=== PATIENT | male | born 1950 | race Caucasian/White ===

== ENCOUNTER 2017-09-07 09:59 | Day surgery (SDC) | payer MEDICARE ==
[~2017-09-07] VITALS: Ht 180.3 cm; Wt 127.8 kg
[~2017-09-07 09:59] MED LIST: ENOX60SY4 SC; LORA2TAB PO; LOSA100T6 PO; VENL150C PO; WARF-36 PO
[2017-09-07] MEDS ORDERED: LACTATED RINGERS 1,000 ML IV SCH (10:44)
[2017-09-07] MEDS ORDERED: LIDOCAINE-MPF 1%, 2ML ONE (10:47)
[2017-09-07] MEDS ORDERED: LIDOCAINE-MPF 1%, 2ML INFIL ONE (11:00)
[2017-09-07 11:18] LABS: INTERNATIONAL NORMALIZED RATIO 0.99 (0.93-1.1); PROTHROMBIN TIME 10.3 Seconds (9.6-11.5)
[2017-09-07] MEDS ORDERED: PROPOFOL 10 MG/ML, 20ML ONE (12:41)
[2017-09-07] MEDS ORDERED: ONDANSETRON ODT 8 MG PO PRN (13:30)
[2017-09-07] MEDS ORDERED: FENTANYL PF 100 MCG/2ML IV PRN (13:30)
[2017-09-07] MEDS ORDERED: LORazepam 2 MG/ML, 1ML IVPush PRN (13:30)
[2017-09-07] MEDS ORDERED: OXYcodone 5 MG/5 ML ORAL.SOL UDC PO PRN (13:30)
[2017-09-07] MEDS ORDERED: MIDAZOLAM 1 MG/ML, 2ML IV PRN (13:30)
[2017-09-07] MEDS ORDERED: MORPHINE SULFATE 4 MG/ML, 1ML IVPush PRN (13:30)
== END 2017-09-07 15:00 ==
LOC: OUT 09:59
DX: Z09 Encounter for follow-up examination after completed treatment for conditions other than malignant neoplasm (principal); D12.0 Benign neoplasm of cecum; D12.4 Benign neoplasm of descending colon; K57.30 Diverticulosis of large intestine without perforation or abscess without bleeding; Z86.010 Personal history of colon polyps; I10 Essential (primary) hypertension
CPT/HCPCS: 36415; 45385; 85610; 85730; 88305; J2704; J3490; J7120

== ENCOUNTER 2020-01-23 13:58 | Inpatient (IN) | payer MEDICARE, OTHER ==
[~2020-01-23] VITALS: Ht 180.3 cm; Wt 95.7 kg
[~2020-01-23 13:58] MED LIST changes: +LOSA100T14 PO; -LOSA100T6 PO
--- NOTE | 2020-01-23 14:04 | NUR ---
HAD A SYNCOPAL EVENT AND CHEST PAIN TODAY AND BIB [facility] IN A FLUTTER. PT REPORTS ELIQUIS USE BUT DENIES ANY INJURIES FROM FALL. PT TACHYPNIC ON ARRIVAL BUT DENIES ANY RESPIRATORY COMPLAINTS AT THIS TIME. PT SEEN AT [facility] YESTERDAY FOR TIA AND PT WITH HISTORY OF. UPON ARRIVAL TO [facility] ED, EKG DONE AT AND PT CHANGED INTO GOWN AND ATTACHED TO VS AND CARDIAC MONITORS. VSS AT THIS TIME. PT EDUCATED ON ER PROCESS AND VERBALIZES UNDERSTANDING. AWAITING ERP AT THIS TIME. PT HAS CALL LIGHT WITHIN REACH AND DENIES ANY OTHER NEEDS AT THIS TIME.
[2020-01-23 14:35] LABS: BASOPHILS # (AUTO) 0.04 x10^3/uL (0-0.1); BASOPHILS % (AUTO) 0 % (0-1); EOSINOPHILS # (AUTO) 0.17 x10^3/uL (0-0.4); EOSINOPHILS % (AUTO) 2 % (1-7); LYMPHOCYTES # (AUTO) 1.54 x10^3/uL (1-3.4); LYMPHOCYTES % (AUTO) 16 % (22-44); MD NO; MEAN CORPUSCULAR HEMOGLOBIN 29.7 pg (27.5-34.5); MEAN CORPUSCULAR HGB CONC 33.8 g/dL (33.2-36.2); MEAN PLATELET VOLUME 10.9 fL (7.4-10.4); MONOCYTES # (AUTO) 0.66 x10^3/uL (0.2-0.8); MONOCYTES % (AUTO) 7 % (2-9); NEUTROPHILS % (AUTO) 75 % (42-75); PLATELET COUNT 126 x10^3/uL (130-400); RED CELL DISTRIBUTION WIDTH 14.3 % (9.4-14.8)
[2020-01-23 14:41] LABS: INTERNATIONAL NORMALIZED RATIO 1.05 (0.93-1.1); PROTHROMBIN TIME 10.8 Seconds (9.6-11.5)
[2020-01-23 14:42] LABS: ALANINE AMINOTRANSFERASE 26 U/L (12-78); ALBUMIN 3.3 g/dL (3.4-5.0); ANION GAP 5 mmol/L (5-15); CALCIUM 8.6 mg/dL (8.5-10.1); CHLORIDE 108 mmol/L (98-107); CREATININE 1.38 mg/dL (0.7-1.3)
[2020-01-23 14:46] LABS: ALKALINE PHOSPHATASE 70 U/L (45-117); BILIRUBIN,TOTAL 0.8 mg/dL (0.2-1.0); TOTAL PROTEIN 6.9 g/dL (6.4-8.2); TROPONIN I < 0.015 ng/mL (0.000-0.045)
[2020-01-23] MEDS ORDERED: SODIUM CHLORIDE FLUSH 10ML SYR IVF ONE (15:00)
--- NOTE | 2020-01-23 15:17 | NUR ---
PT AMBULATES TO RESTROOM WITH STEADY GAIT AT THIS TIME.
--- NOTE | 2020-01-23 16:43 | NUR ---
THROUGHPUT RN: PT W/ LONG TERM PLUS INSURANCE. CALLED AND SPOKE W/ ADITYA AT [facility] WHO DECLINED TRANSFER. CALLED AND SPOKE W/ MUKESH AT [facility] WHO DECLINED TRANSFER. PSN FAXED TO [phone]. CONFIRMATION RECEIVED.
[2020-01-23] MEDS ORDERED: APIX5TAB PO (17:39)
--- NOTE | 2020-01-23 17:51 | NUR ---
PT TRANSPORTED FROM ED TO FLOOR AT THIS TIME. REPORT OF PT TO FLOOR RNS LORENZO AND VIRGIL. PT EDUCATED ON FLOOR ASSIGNMENT AND VERBALIZES UNDERSTANDING. ALL QUESTIONS ANSWERED PRIOR TO TRANSFER OF PT.
[2020-01-23 18:06] VITALS: BP 125/65
[2020-01-23 18:11] VITALS: BP 125/65
[2020-01-23] MEDS ORDERED: ZOLP10TA PO (18:42)
[2020-01-23 19:01] VITALS: BP 150/79
[2020-01-23] MEDS ORDERED: ACETAMINOPHEN 325 MG TABLET PO PRN (20:00)
[2020-01-23] MEDS ORDERED: POLYETHYLENE GLYCOL 17 GM PACKET PO PRN (20:00)
[2020-01-23] MEDS ORDERED: DOCUSATE 100 MG CAPSULE PO PRN (20:00)
[2020-01-23] MEDS ORDERED: PHARMACY MAY ADJ FOR RENAL FX MC PRN (20:00)
[2020-01-23] MEDS ORDERED: BISACODYL 10 MG SUPP PR PRN (20:00)
[2020-01-23] MEDS: VENLAFAXINE 75 MG CAP ER PO SCH (20:56)
[2020-01-23] MEDS: APIXABAN 5 MG TABLET PO SCH (20:56)
[2020-01-23] MEDS: ZOLPIDEM 10MG TABLET PO SCH (20:56)
[2020-01-23] MEDS: LOSARTAN 100 MG TAB PO SCH (20:56)
[2020-01-23 20:58] LABS: TROPONIN I < 0.015 ng/mL (0.000-0.045)
[2020-01-23] MEDS: METOPROLOL TARTRATE 25 MG TAB PO SCH (21:01)
[2020-01-23 21:32] LABS: AMPHETAMINE SCREEN, URINE Negative (Negative); BARBITURATE SCREEN, URINE Negative (Negative); BENZODIAZEPINE SCREEN, URINE Negative (Negative); CANNABINOID SCREEN, URINE Negative (Negative); COCAINE SCREEN, URINE Negative (Negative); METHADONE SCREEN, URINE Negative (Negative); OPIATE SCREEN, URINE Negative (Negative)
[2020-01-24 01:58] VITALS: BP 161/85
[2020-01-24 02:14] LABS: BASOPHILS # (AUTO) 0.04 x10^3/uL (0-0.1); BASOPHILS % (AUTO) 0 % (0-1); EOSINOPHILS # (AUTO) 0.26 x10^3/uL (0-0.4); EOSINOPHILS % (AUTO) 3 % (1-7); LYMPHOCYTES # (AUTO) 2.55 x10^3/uL (1-3.4); LYMPHOCYTES % (AUTO) 26 % (22-44); MD NO; MEAN CORPUSCULAR HEMOGLOBIN 29.8 pg (27.5-34.5); MEAN CORPUSCULAR HGB CONC 33.8 g/dL (33.2-36.2); MONOCYTES # (AUTO) 0.65 x10^3/uL (0.2-0.8); MONOCYTES % (AUTO) 7 % (2-9); NEUTROPHILS # (AUTO) 6.28 x10^3/uL (1.8-6.8); NEUTROPHILS % (AUTO) 64 % (42-75); PLATELET COUNT 108 x10^3/uL (130-400); RED BLOOD COUNT 5.24 x10^6/uL (4.38-5.82)
[2020-01-24 02:25] LABS: ALANINE AMINOTRANSFERASE 22 U/L (12-78); ANION GAP 5 mmol/L (5-15); CALCIUM 8.6 mg/dL (8.5-10.1); CHLORIDE 110 mmol/L (98-107); CREATININE 1.36 mg/dL (0.7-1.3)
[2020-01-24 02:33] LABS: TROPONIN I < 0.015 ng/mL (0.000-0.045)
[2020-01-24 02:35] LABS: ALKALINE PHOSPHATASE 68 U/L (45-117); BILIRUBIN,TOTAL 0.6 mg/dL (0.2-1.0); TOTAL PROTEIN 6.3 g/dL (6.4-8.2)
[2020-01-24] MEDS: METOPROLOL TARTRATE 25 MG TAB PO SCH ×2 (06:05→17:59)
[2020-01-24 07:28] VITALS: BP 137/81
[2020-01-24] MEDS: VENLAFAXINE 75 MG CAP ER PO SCH ×2 (07:42→20:18)
[2020-01-24] MEDS: APIXABAN 5 MG TABLET PO SCH ×2 (07:42→20:18)
[2020-01-24] MEDS ORDERED: REGADENOSON 0.4 MG/5 ML SYRINGE ONE (09:55)
[2020-01-24 13:49] VITALS: BP 147/77
[2020-01-24 17:58] VITALS: BP 159/90
[2020-01-24 19:51] VITALS: BP 166/94
[2020-01-24] MEDS: LOSARTAN 100 MG TAB PO SCH (20:18)
[2020-01-24] MEDS: ZOLPIDEM 10MG TABLET PO SCH (20:18)
[2020-01-24] MEDS: SODIUM CHLORIDE 0.9% 1,000 ML IV SCH (20:18)
[2020-01-25 00:02] VITALS: BP 183/100
[2020-01-25 04:23] VITALS: BP 124/57
[2020-01-25 06:01] LABS: ANION GAP 6 mmol/L (5-15); CALCIUM 8.8 mg/dL (8.5-10.1); CHLORIDE 109 mmol/L (98-107); CREATININE 1.06 mg/dL (0.7-1.3)
[2020-01-25 06:05] LABS: BASOPHILS # (AUTO) 0.03 x10^3/uL (0-0.1); BASOPHILS % (AUTO) 0 % (0-1); EOSINOPHILS # (AUTO) 0.31 x10^3/uL (0-0.4); EOSINOPHILS % (AUTO) 3 % (1-7); LYMPHOCYTES # (AUTO) 1.69 x10^3/uL (1-3.4); LYMPHOCYTES % (AUTO) 17 % (22-44); MD NO; MEAN CORPUSCULAR HEMOGLOBIN 29.6 pg (27.5-34.5); MEAN CORPUSCULAR HGB CONC 33.6 g/dL (33.2-36.2); MEAN PLATELET VOLUME 11.2 fL (7.4-10.4); MONOCYTES # (AUTO) 0.63 x10^3/uL (0.2-0.8); MONOCYTES % (AUTO) 6 % (2-9); NEUTROPHILS # (AUTO) 7.21 x10^3/uL (1.8-6.8); NEUTROPHILS % (AUTO) 73 % (42-75); PLATELET COUNT 106 x10^3/uL (130-400); RED CELL DISTRIBUTION WIDTH 13.7 % (9.4-14.8)
[2020-01-25 06:27] VITALS: BP 145/83
[2020-01-25] MEDS: METOPROLOL TARTRATE 25 MG TAB PO SCH ×2 (06:28→18:00)
[2020-01-25] MEDS ORDERED: LACTULOSE 10 GM/15 ML UDC PO SCH (09:00)
[2020-01-25] MEDS: VENLAFAXINE 75 MG CAP ER PO SCH ×2 (09:43→20:13)
[2020-01-25] MEDS: APIXABAN 5 MG TABLET PO SCH ×2 (09:43→20:13)
[2020-01-25] MEDS: CYANOCOBALAMIN 1,000 MCG/ML, 1ML IM SCH (09:43)
[2020-01-25 09:56] VITALS: BP 154/79
[2020-01-25 14:50] VITALS: BP 143/89
[2020-01-25 19:11] VITALS: BP 162/94
[2020-01-25] MEDS: LOSARTAN 100 MG TAB PO SCH (20:13)
[2020-01-25] MEDS: ZOLPIDEM 10MG TABLET PO SCH (20:13)
[2020-01-25] MEDS: SODIUM CHLORIDE 0.9% 1,000 ML IV SCH (20:14)
[2020-01-25] MEDS: FLUTICASONE NASAL SPRAY 16GM NAS PRN (21:34)
[2020-01-26 00:24] VITALS: BP 159/96
[2020-01-26 05:12] LABS: BASOPHILS # (AUTO) 0.07 x10^3/uL (0-0.1); BASOPHILS % (AUTO) 1 % (0-1); EOSINOPHILS # (AUTO) 0.27 x10^3/uL (0-0.4); EOSINOPHILS % (AUTO) 3 % (1-7); LYMPHOCYTES # (AUTO) 1.97 x10^3/uL (1-3.4); LYMPHOCYTES % (AUTO) 20 % (22-44); MD NO; MEAN CORPUSCULAR HEMOGLOBIN 29.4 pg (27.5-34.5); MEAN CORPUSCULAR HGB CONC 33.1 g/dL (33.2-36.2); MEAN PLATELET VOLUME 10.8 fL (7.4-10.4); MONOCYTES % (AUTO) 6 % (2-9); NEUTROPHILS # (AUTO) 7.12 x10^3/uL (1.8-6.8); NEUTROPHILS % (AUTO) 71 % (42-75); PLATELET COUNT 111 x10^3/uL (130-400); RED BLOOD COUNT 5.26 x10^6/uL (4.38-5.82); RED CELL DISTRIBUTION WIDTH 14.1 % (9.4-14.8)
[2020-01-26 05:22] LABS: ALANINE AMINOTRANSFERASE 20 U/L (12-78); ALBUMIN 3.1 g/dL (3.4-5.0); ANION GAP 6 mmol/L (5-15); CALCIUM 8.7 mg/dL (8.5-10.1); CHLORIDE 107 mmol/L (98-107); CREATININE 1.03 mg/dL (0.7-1.3)
[2020-01-26 05:24] LABS: ALKALINE PHOSPHATASE 67 U/L (45-117); BILIRUBIN,TOTAL 0.6 mg/dL (0.2-1.0); TOTAL PROTEIN 6.6 g/dL (6.4-8.2)
[2020-01-26 07:25] VITALS: BP 157/92
[2020-01-26] MEDS: METOPROLOL TARTRATE 25 MG TAB PO SCH ×2 (10:57→18:20)
[2020-01-26] MEDS: VENLAFAXINE 75 MG CAP ER PO SCH ×2 (10:57→21:34)
[2020-01-26] MEDS: APIXABAN 5 MG TABLET PO SCH ×2 (10:57→21:34)
[2020-01-26] MEDS: CYANOCOBALAMIN 1,000 MCG/ML, 1ML IM SCH (10:58)
[2020-01-26 14:15] VITALS: BP 132/88
[2020-01-26 18:13] VITALS: BP 142/82
[2020-01-26 19:33] VITALS: BP 166/99
[2020-01-26] MEDS: ZOLPIDEM 10MG TABLET PO SCH (21:34)
[2020-01-26] MEDS: LOSARTAN 100 MG TAB PO SCH (21:34)
[2020-01-27 00:31] VITALS: BP 161/94
[2020-01-27 05:07] LABS: BASOPHILS # (AUTO) 0.06 x10^3/uL (0-0.1); BASOPHILS % (AUTO) 1 % (0-1); EOSINOPHILS # (AUTO) 0.28 x10^3/uL (0-0.4); EOSINOPHILS % (AUTO) 3 % (1-7); LYMPHOCYTES # (AUTO) 2.52 x10^3/uL (1-3.4); LYMPHOCYTES % (AUTO) 23 % (22-44); MD NO; MEAN CORPUSCULAR HEMOGLOBIN 29.4 pg (27.5-34.5); MEAN CORPUSCULAR HGB CONC 33.4 g/dL (33.2-36.2); MEAN PLATELET VOLUME 11.1 fL (7.4-10.4); MONOCYTES # (AUTO) 0.83 x10^3/uL (0.2-0.8); MONOCYTES % (AUTO) 7 % (2-9); NEUTROPHILS # (AUTO) 7.41 x10^3/uL (1.8-6.8); NEUTROPHILS % (AUTO) 67 % (42-75); PLATELET COUNT 125 x10^3/uL (130-400); RED BLOOD COUNT 5.32 x10^6/uL (4.38-5.82); RED CELL DISTRIBUTION WIDTH 13.4 % (9.4-14.8)
[2020-01-27 05:22] LABS: ANION GAP 6 mmol/L (5-15); CALCIUM 8.8 mg/dL (8.5-10.1); CHLORIDE 107 mmol/L (98-107)
[2020-01-27 05:23] LABS: CREATININE 1.05 mg/dL (0.7-1.3)
[2020-01-27 06:45] VITALS: BP 150/97
[2020-01-27] MEDS: METOPROLOL TARTRATE 25 MG TAB PO SCH ×2 (07:27→17:15)
[2020-01-27] MEDS: CYANOCOBALAMIN 1,000 MCG/ML, 1ML IM SCH (08:44)
[2020-01-27] MEDS: APIXABAN 5 MG TABLET PO SCH ×2 (08:44→19:37)
[2020-01-27] MEDS: VENLAFAXINE 75 MG CAP ER PO SCH ×2 (08:44→19:36)
[2020-01-27] MEDS: FLUTICASONE NASAL SPRAY 16GM NAS PRN (08:45)
[2020-01-27 12:24] VITALS: BP 168/89
[2020-01-27] MEDS: ZOLPIDEM 10MG TABLET PO SCH (19:37)
[2020-01-27] MEDS: LOSARTAN 100 MG TAB PO SCH (19:37)
[2020-01-27 19:38] VITALS: BP 151/77
[2020-01-27] MEDS ORDERED: MELATONIN 5 MG TABLET PO PRN (22:30)
[2020-01-28 00:15] VITALS: BP 144/89
[2020-01-28] MEDS: METOPROLOL TARTRATE 25 MG TAB PO SCH (04:56)
[2020-01-28 06:52] VITALS: BP 146/91
[2020-01-28] MEDS: APIXABAN 5 MG TABLET PO SCH (09:25)
[2020-01-28] MEDS: CYANOCOBALAMIN 1,000 MCG/ML, 1ML IM SCH (09:25)
[2020-01-28] MEDS: VENLAFAXINE 75 MG CAP ER PO SCH (09:25)
[2020-01-28] MEDS ORDERED: CYAN100074 PO (10:19)
[2020-01-28] MEDS ORDERED: METO25TA35 PO (10:19)
== END 2020-01-28 13:16 | disposition home health service (06) | DRG 73 ==
LOC: ED 14:07 → EDIP 15:53 → 5SO 17:54 → DCLOUNGE 01-28 13:06
PROVIDERS: ADMIT Internal Medicine; ATTEND Internal Medicine
DX: G90.8 Other disorders of autonomic nervous system (principal); N17.0 Acute kidney failure with tubular necrosis; D68.69 Other thrombophilia; I50.22 Chronic systolic (congestive) heart failure; J96.11 Chronic respiratory failure with hypoxia; J98.11 Atelectasis; E46 Unspecified protein-calorie malnutrition; J98.6 Disorders of diaphragm; E86.0 Dehydration; I11.0 Hypertensive heart disease with heart failure; I48.91 Unspecified atrial fibrillation; K57.90 Diverticulosis of intestine, part unspecified, without perforation or abscess without bleeding; Z79.899 Other long term (current) drug therapy; Z86.73 Personal history of transient ischemic attack (TIA), and cerebral infarction without residual deficits; Z68.29 Body mass index [BMI] 29.0-29.9, adult; Z79.01 Long term (current) use of anticoagulants
CPT/HCPCS: 36415; 71045; 78452; 80048; 80053; 80307; 82140; 82607; 83735; 83880; 84100; 84443; 84484; 85025; 85610; 85730; 93005; 93017; 99285; C8929; G0378; J2785; Q9957; 92523-GN; A9502; C9898; J3420; J7030

== ENCOUNTER 2020-01-28 17:30 | Observation (INO) | payer OTHER ==
[~2020-01-28] VITALS: Ht 180.3 cm; Wt 101.7 kg
[~2020-01-28 17:30] MED LIST changes: +APIX5TAB PO; +CYAN100074 PO; +METO25TA35 PO; +ZOLP10TA PO
[2020-01-28] MEDS ORDERED: SODIUM CHLORIDE FLUSH 10ML SYR IVF ONE (18:00)
[2020-01-28] MEDS ORDERED: PLEASE ENTER HEIGHT AND WEIGHT MC SCH (18:00)
[2020-01-28 18:06] LABS: BASOPHILS % (AUTO) 1 % (0-1); EOSINOPHILS % (AUTO) 1 % (1-7); LYMPHOCYTES % (AUTO) 15 % (22-44); MEAN CORPUSCULAR HEMOGLOBIN 29.8 pg (27.5-34.5); MEAN CORPUSCULAR HGB CONC 34.5 g/dL (33.2-36.2); MONOCYTES % (AUTO) 7 % (2-9); NEUTROPHILS % (AUTO) 77 % (42-75); PLATELET COUNT 136 x10^3/uL (130-400); RED BLOOD COUNT 5.25 x10^6/uL (4.38-5.82); RED CELL DISTRIBUTION WIDTH 13.8 % (9.4-14.8)
[2020-01-28 18:15] LABS: ALANINE AMINOTRANSFERASE 20 U/L (12-78); ALBUMIN 3.2 g/dL (3.4-5.0); ANION GAP 6 mmol/L (5-15); CALCIUM 8.5 mg/dL (8.5-10.1); CHLORIDE 106 mmol/L (98-107); CREATININE 1.13 mg/dL (0.7-1.3)
[2020-01-28 18:19] LABS: ALKALINE PHOSPHATASE 64 U/L (45-117); BILIRUBIN,TOTAL 0.5 mg/dL (0.2-1.0); TOTAL PROTEIN 6.8 g/dL (6.4-8.2); TROPONIN I 0.057 ng/mL (0.000-0.045)
[2020-01-28 18:24] LABS: MD NO
[2020-01-28] MEDS ORDERED: SODIUM CHLORIDE 0.9% 1,000 ML IV SCH (18:52)
[2020-01-28] MEDS ORDERED: DOCUSATE 100 MG CAPSULE PO PRN (19:00)
[2020-01-28] MEDS ORDERED: ACETAMINOPHEN 325 MG TABLET PO PRN (19:00)
[2020-01-28 20:17] VITALS: BP 151/83
[2020-01-28 20:20] VITALS: BP 131/83
[2020-01-28 20:21] VITALS: BP 114/79
[2020-01-28] MEDS ORDERED: VENLAFAXINE XR 37.5MG CAP.ER.24H PO SCH (21:00)
[2020-01-28] MEDS: LOSARTAN 100 MG TAB PO SCH (22:07)
[2020-01-28] MEDS: APIXABAN 5 MG TABLET PO SCH (22:08)
[2020-01-28] MEDS: ZOLPIDEM 10MG TABLET PO SCH (23:12)
[2020-01-29] VITALS (9 sets, daily range): BP systolic 125–153; BP diastolic 75–92
[2020-01-29 00:37] LABS: TROPONIN I 0.043 ng/mL (0.000-0.045)
[2020-01-29] MEDS: METOPROLOL TARTRATE 25 MG TAB PO SCH ×2 (06:09→17:10)
[2020-01-29 06:23] LABS: ANION GAP 5 mmol/L (5-15); CALCIUM 8.5 mg/dL (8.5-10.1); CHLORIDE 109 mmol/L (98-107)
[2020-01-29 06:29] LABS: TROPONIN I 0.038 ng/mL (0.000-0.045)
[2020-01-29] MEDS: CYANOCOBALAMIN 1,000 MCG TABLET PO SCH (07:53)
[2020-01-29] MEDS: APIXABAN 5 MG TABLET PO SCH ×2 (07:55→21:01)
[2020-01-29] MEDS: ASPIRIN 81 MG TABLET EC PO SCH (09:07)
[2020-01-29] MEDS: LOSARTAN 100 MG TAB PO SCH (21:01)
[2020-01-29] MEDS: VENLAFAXINE 75 MG CAP ER PO SCH (21:07)
[2020-01-30 00:17] VITALS: BP 153/96
[2020-01-30 05:46] VITALS: BP 165/105
[2020-01-30] MEDS: METOPROLOL TARTRATE 25 MG TAB PO SCH ×2 (05:48→19:43)
[2020-01-30] MEDS: ASPIRIN 81 MG TABLET EC PO SCH (05:49)
[2020-01-30 06:55] VITALS: BP 147/89
[2020-01-30] MEDS: APIXABAN 5 MG TABLET PO SCH ×2 (10:44→20:07)
[2020-01-30] MEDS: CYANOCOBALAMIN 1,000 MCG TABLET PO SCH (10:44)
[2020-01-30 12:10] VITALS: BP 152/97
[2020-01-30 19:33] VITALS: BP 170/100
[2020-01-30] MEDS: LOSARTAN 100 MG TAB PO SCH (20:08)
[2020-01-30] MEDS: ZOLPIDEM 10MG TABLET PO SCH ×2 (20:08)
[2020-01-30] MEDS: VENLAFAXINE 75 MG CAP ER PO SCH (20:08)
[2020-02-02] MEDS ORDERED: LOSA50TA2 PO (11:38)
[2020-02-02] MEDS ORDERED: ZOLP-413 PO (11:39)
[2020-02-02] MEDS ORDERED: APIX5TAB PO (16:01)
[2020-02-02] MEDS ORDERED: ZOLP10TA PO (16:01)
[2020-02-14] MEDS ORDERED: FURO40TA6 PO (09:47)
[2020-02-14] MEDS ORDERED: POTA10TA5 PO (09:47)
== END 2020-01-30 23:39 | disposition left against medical advice (07) ==
LOC: ED 19:21 → EDIP 19:51 → INTOOBSV 19:51 → 5SO 20:13
PROVIDERS: ADMIT Family Medicine; ATTEND Family Medicine
DX: R55 Syncope and collapse (principal); R79.89 Other specified abnormal findings of blood chemistry; I48.92 Unspecified atrial flutter; I48.91 Unspecified atrial fibrillation; I10 Essential (primary) hypertension; I21.4 Non-ST elevation (NSTEMI) myocardial infarction; G31.84 Mild cognitive impairment of uncertain or unknown etiology; R47.01 Aphasia; Z86.73 Personal history of transient ischemic attack (TIA), and cerebral infarction without residual deficits; Z79.899 Other long term (current) drug therapy; Z79.82 Long term (current) use of aspirin; Z87.891 Personal history of nicotine dependence
CPT/HCPCS: 36415; 71045; 80048; 80053; 83880; 84484; 85025; 93005; 93880; 96360; 96361; 99285; G0378; J7030

== ENCOUNTER 2020-01-31 03:31 | Emergency (ER) | payer OTHER ==
[~2020-01-31] VITALS: Ht 180.3 cm; Wt 107.0 kg
--- NOTE | 2020-01-31 03:40 | NUR ---
BIBA FOR SYNCOPOL EPISODE, PT LEFT AMA AT 10PM, WENT HOME AND PASSED OUT IN HALLWAY, DENIES HITTING HEAD OR INJURY. STATES HE WAS "BEING SEEN FOR ELEVATED TROPONINS." EN ROUTE, PT WAS IN A FLUTTER, HX OF A FIB / A FLUTTER, TAKES ELIQUIS, METOPROLOL. AND LOSARTAN. UPON ARRIVAL TO ED, PT REPORTS DIZZINIESS AND MID STERNAL CP AND "FEELING LIKE I'M GOING TO PASS OUT"
--- NOTE | 2020-01-31 04:30 | NUR ---
Pt trying to get out of bed to go to restroom. Reinforced importance of using call tovar first and provided pt with urinal. Pt using urinal in bed without issue and states he won't get up without calling
[2020-01-31 05:08] LABS: BASOPHILS % (AUTO) 1 % (0-1); EOSINOPHILS % (AUTO) 2 % (1-7); LYMPHOCYTES % (AUTO) 21 % (22-44); MEAN CORPUSCULAR HEMOGLOBIN 29.6 pg (27.5-34.5); MEAN CORPUSCULAR HGB CONC 34.1 g/dL (33.2-36.2); MEAN PLATELET VOLUME 10.8 fL (7.4-10.4); MONOCYTES % (AUTO) 7 % (2-9); NEUTROPHILS % (AUTO) 70 % (42-75); PLATELET COUNT 135 x10^3/uL (130-400); RED BLOOD COUNT 5.62 x10^6/uL (4.38-5.82); RED CELL DISTRIBUTION WIDTH 13.9 % (9.4-14.8)
[2020-01-31 05:16] LABS: ALBUMIN 3.5 g/dL (3.4-5.0); ANION GAP 5 mmol/L (5-15); CALCIUM 9.2 mg/dL (8.5-10.1); CHLORIDE 109 mmol/L (98-107); CREATININE 1.06 mg/dL (0.7-1.3)
[2020-01-31 05:20] LABS: TROPONIN I 0.027 ng/mL (0.000-0.045)
[2020-01-31 05:23] LABS: MD NO
--- NOTE | 2020-01-31 05:36 | NUR ---
Pt resting in gurney, appears comfortable, NADN, VSS. Provided pudding and crackers per request, denies other needs at this time. Pending inpatient bed
--- NOTE | 2020-01-31 06:20 | NUR ---
Pt walking in hallway, asking for snack. Reinforced importance of not removing self from monitors and calling before getting up, pt verbalized understanding. Pt provided with pudding per request.
--- NOTE | 2020-01-31 07:40 | NUR ---
Unable to find pt, [employer] called. Pt located by security, back in room. Hospitalist notified, to see pt.
[2020-01-31 07:41] VITALS: BP 139/95
--- NOTE | 2020-01-31 08:21 | NUR ---
Pt upset that he has to wait to be seen by hospitalist. Pt yelling at this RN in the hallway. Explained to the pt that he should stay, pt refusing. A/O X 4, AMA form signed, hospitalist notified.
[2020-02-02] MEDS ORDERED: LOSA50TA2 PO (11:38)
[2020-02-02] MEDS ORDERED: ZOLP-413 PO (11:39)
[2020-02-02] MEDS ORDERED: ZOLP10TA PO (16:01)
[2020-02-02] MEDS ORDERED: APIX5TAB PO (16:01)
== END 2020-01-31 08:31 | disposition left against medical advice (07) ==
LOC: MERGE 03:31 → ED 04:15 → EDIP 04:17 → UNDOADMIN 04:17 → ED 08:31
DX: R07.9 Chest pain, unspecified (principal); R55 Syncope and collapse; R06.00 Dyspnea, unspecified; I48.91 Unspecified atrial fibrillation; I44.1 Atrioventricular block, second degree; I25.2 Old myocardial infarction; I10 Essential (primary) hypertension; Z86.73 Personal history of transient ischemic attack (TIA), and cerebral infarction without residual deficits
CPT/HCPCS: 36415; 80048; 82040; 84484; 85025; 93005; 99284

== ENCOUNTER 2020-02-02 19:31 | Emergency (ER) | payer OTHER ==
[~2020-02-02] VITALS: Ht 180.3 cm; Wt 125.0 kg
[~2020-02-02 19:31] MED LIST changes: +LOSA50TA2 PO; +ZOLP-413 PO
--- NOTE | 2020-02-02 19:50 | NUR ---
Patient BIB ambulance c/o syncope and CP. Patient has been experiencing syncope and afib x2 weeks. Yesterday he had a monitor placed and was d/c this am. Today he experienced sternal CP followed by syncope which are the same symptoms prior to monitor placement. Patient is currently slightly dizzy and experiencing the same CP. He is in NAD. Respirations even and unlabored.
[2020-02-02 20:43] LABS: ALBUMIN 3.7 g/dL (3.4-5.0); ANION GAP 2 mmol/L (5-15); CALCIUM 9.2 mg/dL (8.5-10.1); CHLORIDE 106 mmol/L (98-107)
[2020-02-02 20:49] LABS: ALANINE AMINOTRANSFERASE 20 U/L (12-78); ALKALINE PHOSPHATASE 65 U/L (45-117); BILIRUBIN,TOTAL 0.7 mg/dL (0.2-1.0); CREATININE 1.22 mg/dL (0.7-1.3); TOTAL PROTEIN 7.6 g/dL (6.4-8.2); TROPONIN I < 0.015 ng/mL (0.000-0.045)
[2020-02-02 20:56] VITALS: BP 160/109
[2020-02-02 20:57] LABS: BASOPHILS % (AUTO) 1 % (0-1); EOSINOPHILS % (AUTO) 1 % (1-7); LYMPHOCYTES % (AUTO) 17 % (22-44); MEAN CORPUSCULAR HEMOGLOBIN 29.5 pg (27.5-34.5); MEAN CORPUSCULAR HGB CONC 33.9 g/dL (33.2-36.2); MEAN PLATELET VOLUME 10.2 fL (7.4-10.4); MONOCYTES % (AUTO) 7 % (2-9); NEUTROPHILS % (AUTO) 75 % (42-75); PLATELET COUNT 149 x10^3/uL (130-400); RED BLOOD COUNT 5.53 x10^6/uL (4.38-5.82); RED CELL DISTRIBUTION WIDTH 13.9 % (9.4-14.8)
[2020-02-02 21:03] LABS: MD NO
--- NOTE | 2020-02-02 21:11 | NUR ---
Call placed to [employer] to obtain info from loop recorder. Patient does not have any of his equiptment or card info
--- NOTE | 2020-02-02 21:30 | NUR ---
Patient came out of room stating "I'm outta here, you guys aren't doing anything and I'm tired of waiting". Patient instructed to go back to room, and this RN will meet him in there with paperwork. ERP to room as well. ERP and this RN educated patient that we are taking all necessary steps, and that it takes time to get answers. Patient informed that it is his right to leave, patient educated that he is leaving before interrogating loop recorder/speaking with [employer]tronic, so we are unable to determine if cardiac issue related to syncopal events, and outcomes that could happen, patient states "It doesn't matter, I'll see the heart doctor". Patient ambulatory with steady gait to discharge, provided with taxi voucher for safe discharge. Patient has left AMA multiple times for same complaints in the last couple weeks.
== END 2020-02-02 21:36 | disposition left against medical advice (07) ==
LOC: ED 20:01
DX: R55 Syncope and collapse (principal); R07.2 Precordial pain; R06.02 Shortness of breath; I10 Essential (primary) hypertension; I48.91 Unspecified atrial fibrillation; I48.92 Unspecified atrial flutter; Z86.73 Personal history of transient ischemic attack (TIA), and cerebral infarction without residual deficits
CPT/HCPCS: 36415; 71046; 80053; 83880; 84484; 85025; 93005; 99285

== ENCOUNTER 2020-02-03 11:44 | Emergency (ER) | payer OTHER ==
[~2020-02-03] VITALS: Ht 180.3 cm; Wt 107.0 kg
--- NOTE | 2020-02-03 11:56 | NUR ---
PT BIB EMS AFTER SYNCOPAL EPISODE WITH CHEST PAIN. PT WOKE UP IN THE HALLWAY OF HIS APT BUILDING. PT DOES NOT RECAL ANYTHING BEFORE THE EPISODE. NO TRAUMA PER EMS. PT DENIES PAIN OR SOB AT THIS TIME.
--- NOTE | 2020-02-03 11:59 | NUR ---
PT MEDICATED BY EMS COMPUTER APPLICATIONS DEVELOPER. PT RECEIVED 1 NTG 0.4 MG AND 324 MG ASA. IV ESTABLISHED, 20 GA LFA.
--- NOTE | 2020-02-03 12:50 | NUR ---
PT RESTING WITH EYES CLOSED. PT WAKENS WHEN RN ENTERED ROOM. PT DENIES SOB OR CP AT THIS TIME. AWAITING FURTHER ORDERS.
[2020-02-03 13:02] LABS: ALBUMIN 3.5 g/dL (3.4-5.0); ANION GAP 6 mmol/L (5-15); CALCIUM 8.8 mg/dL (8.5-10.1); CHLORIDE 108 mmol/L (98-107); CREATININE 1.14 mg/dL (0.7-1.3)
[2020-02-03 13:04] LABS: BASOPHILS % (AUTO) 0 % (0-1); EOSINOPHILS % (AUTO) 1 % (1-7); LYMPHOCYTES % (AUTO) 12 % (22-44); MEAN CORPUSCULAR HEMOGLOBIN 29.4 pg (27.5-34.5); MEAN CORPUSCULAR HGB CONC 33.8 g/dL (33.2-36.2); MONOCYTES % (AUTO) 7 % (2-9); NEUTROPHILS % (AUTO) 80 % (42-75); PLATELET COUNT 143 x10^3/uL (130-400); RED BLOOD COUNT 5.47 x10^6/uL (4.38-5.82); RED CELL DISTRIBUTION WIDTH 13.6 % (9.4-14.8)
[2020-02-03 13:05] LABS: MD NO
[2020-02-03 13:06] LABS: TROPONIN I < 0.015 ng/mL (0.000-0.045)
--- NOTE | 2020-02-03 13:33 | NUR ---
BREAK RN- URINAL PROVIDED
[2020-02-03 13:53] VITALS: BP 146/87
--- NOTE | 2020-02-03 14:30 | NUR ---
PT UOB AND REMOVED LEADS AND BLOOD PRESSURE CUFF. PT WANTING TO LEAVE. EXPLAINED TO PT THAT THE ER DOCTOR IS AWAITING CARTOGRAPHIC DRAFTER TO CALL BACK
== END 2020-02-03 15:02 | disposition home or self-care (01) ==
LOC: ED 12:54
DX: R55 Syncope and collapse (principal); I10 Essential (primary) hypertension; I48.91 Unspecified atrial fibrillation; I25.2 Old myocardial infarction; Z87.891 Personal history of nicotine dependence; Z86.73 Personal history of transient ischemic attack (TIA), and cerebral infarction without residual deficits
CPT/HCPCS: 36415; 80048; 82040; 84484; 85025; 93005; 99284

== ENCOUNTER 2020-02-04 18:32 | Emergency (ER) | payer OTHER ==
--- NOTE | 2020-02-04 18:50 | NUR ---
HX SYNCOPAL EPISODES; HAD LOOP RECORDER PLACED LAST WEEK. FELT DIZZY AND PASSED OUT NO TRAUMA, NO SEIZURE ACTIVITY. NOW IN NSR 74 OCC PVC. 200ML NS IVF BY EMS. NO CP, EKG STAT DONE ON ARRIVAL BY RN. WILL CONTINUE TO MONITOR. MED REC DONE.
[2020-02-04] MEDS ORDERED: SODIUM CHLORIDE FLUSH 10ML SYR IVF ONE (19:00)
[2020-02-04] MEDS ORDERED: SODIUM CHLORIDE 0.9% 1,000ML IVBOLUS ONE (19:00)
[2020-02-04 19:33] VITALS: BP 96/66
--- NOTE | 2020-02-04 20:18 | NUR ---
NO CHANGE IN ASSESSMENT, VS STABLE IVF INFUSING. CALL AZEVEDO IN REACH, SIDE RAILS UP. WILL CONTINUE TO MONITOR.
--- NOTE | 2020-02-04 20:36 | NUR ---
VSS, WILL CONTINUE TO MONITOR.
--- NOTE | 2020-02-04 21:16 | NUR ---
WAITING FOR [employer] REP. VSS. WILL CONTINUE TO MONITOR.
--- NOTE | 2020-02-04 21:23 | NUR ---
pattie rn: medtiffany matias.
--- NOTE | 2020-02-04 21:41 | NUR ---
PT GOT UP ON HIS OWN MULTIPLE TIMES WITHOUT USING CALL LIGHT DID NOT GET SYMPTOMATIC VS WERE STABLE.
== END 2020-02-04 21:55 | disposition home or self-care (01) ==
LOC: ED 19:02
DX: R55 Syncope and collapse (principal); I48.91 Unspecified atrial fibrillation; I10 Essential (primary) hypertension; I25.2 Old myocardial infarction; Z87.891 Personal history of nicotine dependence; Z86.73 Personal history of transient ischemic attack (TIA), and cerebral infarction without residual deficits
CPT/HCPCS: 93005; 96360; 99283; J7030

== ENCOUNTER 2020-02-08 14:21 | Emergency (ER) | payer OTHER ==
[~2020-02-08] VITALS: Ht 182.9 cm; Wt 105.0 kg
--- NOTE | 2020-02-08 14:31 | NUR ---
CONG RN: PT REBECCA [facility] FOR A GLF. PT REPORTS HIS LEGS STOPPED WORKING. PT C/O HEAD PAIN. PT REPORTS HE DID HIT HIS HEAD. PT IS ON ELOQUIS. VS STABLE. TECHNOLOGY APPLICATIONS ENGINEER ON. AFIB NOTED. HX OF. CALL LIGHT IN PLACE.
--- NOTE | 2020-02-08 15:04 | NUR ---
REPORT RECEIVED FROM ELVA HESS. THIS IS A 70 YO M W/ C/O GLF, HIT HEAD, UNKNOWN LOC. PT REPORTS TAKING ELIQUIS. PT NOT ORIENTED TO TIME OR . PT STATES THAT HIS CONFUSION IS IMPROVING SINCE ARRIVAL. LEIGH ANN LINK AT BEDSIDE FOR ED EVAL.
--- NOTE | 2020-02-08 15:12 | NUR ---
LAB IN ROOM.
[2020-02-08 15:13] VITALS: BP 134/76
[2020-02-08 15:31] LABS: BASOPHILS % (AUTO) 1 % (0-1); EOSINOPHILS % (AUTO) 2 % (1-7); LYMPHOCYTES % (AUTO) 19 % (22-44); MEAN CORPUSCULAR HEMOGLOBIN 29.1 pg (27.5-34.5); MEAN CORPUSCULAR HGB CONC 33.5 g/dL (33.2-36.2); MONOCYTES % (AUTO) 7 % (2-9); NEUTROPHILS % (AUTO) 72 % (42-75); PLATELET COUNT 139 x10^3/uL (130-400); RED BLOOD COUNT 5.16 x10^6/uL (4.38-5.82); RED CELL DISTRIBUTION WIDTH 13.6 % (9.4-14.8)
[2020-02-08 15:33] LABS: MD NO
[2020-02-08 15:41] LABS: ALBUMIN 3.4 g/dL (3.4-5.0); ANION GAP 5 mmol/L (5-15); CALCIUM 8.4 mg/dL (8.5-10.1); CHLORIDE 109 mmol/L (98-107); CREATININE 1.21 mg/dL (0.7-1.3)
--- NOTE | 2020-02-08 15:51 | NUR ---
PT REQUESTING FOOD. PT EDUCATED ON NEED TO WAIT AFTER RESULTS. PT REQUESTED FOOD AGAIN STATES HE DOES NOT REMEMBER THE REASON WHY I TOLD HIM HE CAN NOT HAVE FOOD.
--- NOTE | 2020-02-08 16:00 | NUR ---
PT PROVIDED W/ FOOD. OK PER LEIGH ANN FRANCISCO
--- NOTE | 2020-02-08 16:22 | NUR ---
PT PROVIDED W/ MEAL TRAY TO GO. PT RESP EVEN AND UNLABORED, WILBER.
== END 2020-02-08 16:37 | disposition home or self-care (01) ==
LOC: ED 15:10
DX: S09.90XA Unspecified injury of head, initial encounter (principal); R55 Syncope and collapse; I48.91 Unspecified atrial fibrillation; I25.2 Old myocardial infarction; I10 Essential (primary) hypertension; Z86.73 Personal history of transient ischemic attack (TIA), and cerebral infarction without residual deficits; W01.0XXA Fall on same level from slipping, tripping and stumbling without subsequent striking against object, initial encounter; Y93.89 Activity, other specified; Y92.89 Other specified places as the place of occurrence of the external cause; Y99.8 Other external cause status
CPT/HCPCS: 36415; 70450; 72125; 80048; 82040; 85025; 93005; 99285

== ENCOUNTER 2020-02-09 11:27 | Emergency (ER) | payer OTHER ==
[~2020-02-09] VITALS: Ht 180.3 cm; Wt 105.0 kg
--- NOTE | 2020-02-09 11:46 | NUR ---
tima. report received from ems. pt c/o dzy and syncope episode at 11 am today and glf with hitting forehead. no trauma/neck pain/lac noted. pt was seen here yesterday for same. taking blood thinner. pt's aox4. resps even and unlabored. all monitors in place. call light within reach.
[2020-02-09] MEDS ORDERED: MECLIZINE CHEWABLE 25 MG TAB PO ONE (12:00)
[2020-02-09] MEDS ORDERED: MECLIZINE CHEWABLE 25 MG TAB ONE (12:02)
[2020-02-09 12:16] LABS: BASOPHILS % (AUTO) 1 % (0-1); EOSINOPHILS % (AUTO) 3 % (1-7); LYMPHOCYTES % (AUTO) 16 % (22-44); MEAN CORPUSCULAR HEMOGLOBIN 29.3 pg (27.5-34.5); MEAN CORPUSCULAR HGB CONC 33.8 g/dL (33.2-36.2); MEAN PLATELET VOLUME 10.1 fL (7.4-10.4); MONOCYTES % (AUTO) 7 % (2-9); NEUTROPHILS % (AUTO) 74 % (42-75); PLATELET COUNT 123 x10^3/uL (130-400); RED BLOOD COUNT 4.58 x10^6/uL (4.38-5.82)
[2020-02-09 12:18] LABS: MD NO
[2020-02-09 12:28] LABS: ALANINE AMINOTRANSFERASE 14 U/L (12-78); ANION GAP 4 mmol/L (5-15); CALCIUM 8.3 mg/dL (8.5-10.1); CHLORIDE 110 mmol/L (98-107); CREATININE 1.38 mg/dL (0.7-1.3)
[2020-02-09 12:33] LABS: ALKALINE PHOSPHATASE 59 U/L (45-117); BILIRUBIN,TOTAL 0.4 mg/dL (0.2-1.0); TOTAL PROTEIN 6.1 g/dL (6.4-8.2); TROPONIN I < 0.015 ng/mL (0.000-0.045)
--- NOTE | 2020-02-09 12:39 | NUR ---
pt amb to br and back to room with steady gait.
[2020-02-09 12:49] VITALS: BP 121/85
--- NOTE | 2020-02-09 12:58 | NUR ---
orange juice provided per request.
--- NOTE | 2020-02-09 13:27 | NUR ---
pt agitated and yelled at this rn. pt stated"i wanna leave" ot signed ama paper and amb to exit with steady gait. bus pass provided per request.
== END 2020-02-09 13:28 | disposition left against medical advice (07) ==
LOC: ED 12:39
DX: R55 Syncope and collapse (principal); E16.2 Hypoglycemia, unspecified; R06.89 Other abnormalities of breathing; I49.1 Atrial premature depolarization; I48.91 Unspecified atrial fibrillation; I48.92 Unspecified atrial flutter; I25.2 Old myocardial infarction; Z86.73 Personal history of transient ischemic attack (TIA), and cerebral infarction without residual deficits
CPT/HCPCS: 36415; 71045; 80053; 84484; 85025; 93005; 99285

== ENCOUNTER 2020-07-06 18:23 | Inpatient (IN) | payer OTHER ==
[~2020-07-06] VITALS: Ht 180.3 cm; Wt 103.3 kg
[~2020-07-06 18:23] MED LIST changes: +FURO40TA6 PO; +POTA10TA5 PO
--- NOTE | 2020-07-06 18:40 | NUR ---
assumed care of pt. pt hsa refused WC from triage pt c/o unwitnessed syncopal episode x2 today. pt denies hitting his head but states that he thinks that he had +LOC both times pt reports that he has been having intermittent CP but is also having SOB. no resp. distress. pt is A&O x4. calm and cooperative. pt reports that he wants to be admitted for observation. no family at bedside
[2020-07-06] MEDS ORDERED: SODIUM CHLORIDE FLUSH 10ML SYR IVF ONE (19:00)
--- NOTE | 2020-07-06 19:00 | NUR ---
pt in radiology
--- NOTE | 2020-07-06 19:11 | NUR ---
RECEIVED BS REPORT FROM DESHAWN STOLL TO ASSUME CARE OF PT. PT. RETURN FROM CT AT THIS TIME. REQUESTING FOOD AND ADMISSION.
--- NOTE | 2020-07-06 19:11 | NUR ---
pt has been returned to room. report to Sisi HESS and Baldomero HESS
[2020-07-06 19:38] LABS: ALANINE AMINOTRANSFERASE 21 U/L (12-78); ALBUMIN 3.4 g/dL (3.4-5.0); ANION GAP 6 mmol/L (5-15); CALCIUM 8.5 mg/dL (8.5-10.1); CHLORIDE 107 mmol/L (98-107); CREATININE 1.17 mg/dL (0.7-1.3)
[2020-07-06 19:43] LABS: ALKALINE PHOSPHATASE 59 U/L (45-117); BASOPHILS % (AUTO) 1 % (0-1); BILIRUBIN,TOTAL 0.6 mg/dL (0.2-1.0); EOSINOPHILS % (AUTO) 1 % (1-7); LYMPHOCYTES % (AUTO) 11 % (22-44); MEAN CORPUSCULAR HEMOGLOBIN 30.3 pg (27.5-34.5); MEAN CORPUSCULAR HGB CONC 34.5 g/dL (33.2-36.2); MEAN PLATELET VOLUME 9.5 fL (7.4-10.4); MONOCYTES % (AUTO) 11 % (2-9); NEUTROPHILS % (AUTO) 77 % (42-75); PLATELET COUNT 128 x10^3/uL (130-400); RED BLOOD COUNT 5.04 x10^6/uL (4.38-5.82); RED CELL DISTRIBUTION WIDTH 14.1 % (9.4-14.8); TOTAL PROTEIN 7.1 g/dL (6.4-8.2); TROPONIN I < 0.015 ng/mL (0.000-0.045)
[2020-07-06 19:44] LABS: MD NO
--- NOTE | 2020-07-06 20:39 | NUR ---
ATTEMPTED IV ACCESS. PT. SHOUTING AT THIS RN AND PRECEPTEE "I DON'T WANT NO ROOKIES IN HERE ANYMORE." "NOW GET ME SOME FOOD!!" PT. REFUSING IV "UNLESS IT'S AN ULTRASOUND ONE". PT. SHOUTING AT RN ABOUT PAIN IMMEDIATELY PRIOR TO IV STICK "THAT HURTS".
--- NOTE | 2020-07-06 20:49 | NUR ---
PT. PROVIDED WITH CRACKERS AND WATER PER REQUEST AND AFTER OK FROM ERMD. PT. CONTINUES TO BE VERBALLY AGRESSIVE TOWARD THIS RN. "I WAS SO HUNGRY AND YOU TOOK FOREVER TO GET ME FOOD!"
--- NOTE | 2020-07-06 20:55 | NUR ---
[facility] IN TO EVAL PT. FOR ADMISSION.
[2020-07-06] MEDS ORDERED: SODIUM CHLORIDE FLUSH 10ML SYR IVF PRN (21:00)
--- NOTE | 2020-07-06 21:19 | NUR ---
TP RN: MARCE FROM [facility] STATES PT OK TO STAY HERE.
--- NOTE | 2020-07-06 21:22 | NUR ---
JANETH RN IN TO START IV PT. REFUSING FROM THIS RN. PT. HAS BEEN EDUCATED ON NEED TO KEEP MONITORS IN PLACE. FOR THE 2ND TIME PT. REMOVED ALL MONITORS AND IS WANDERING AROUND JAMA IN ED SHOUTING FOR GRAHM CRACKERS DESPITE EDUCATION TO USE CALL LIGHT. PT. PROVIDED WITH MORE CRACKERS PER REQUEST AND RE-EDUCATED ON NEED TO KEEP MONITORS IN PLACE AND USE CALL LIGHT.
--- NOTE | 2020-07-06 21:39 | NUR ---
FIRST ATTEMPT TO CALL REPORT TO FLOOR. NEW ORDER FROM [facility] FOR RECORDS FROM [facility]. MT GETTING THIS STARTED.
--- NOTE | 2020-07-06 21:47 | NUR ---
PT. FOUND WANDERING AROUND HALLS FOR THE 4TH TIME. EDUCATED PT. ON NEED TO REMAIN IN ROOM AND TO NOT REMOVE MONITORS AGAIN. NO EVIDENCE OF LEARNING NOTED.
--- NOTE | 2020-07-06 21:50 | NUR ---
REPORT GIVEN TO FLOOR DESHAWN IRBY. FLOOR READY FOR PT TRANSPORT.
[2020-07-06] MEDS ORDERED: LIDODERM 5% PATCH TD PRN (22:30)
[2020-07-06] MEDS ORDERED: MELATONIN 5 MG TABLET PO PRN (22:30)
[2020-07-06] MEDS ORDERED: ENALAPRILAT 1.25 MG/ML, 2ML IVPush PRN (22:30)
[2020-07-06] MEDS ORDERED: ACETAMINOPHEN 325 MG TABLET PO PRN (22:30)
[2020-07-06] MEDS ORDERED: NITROGLYCERIN 0.4 MG BOTTLE (25 TABS) SL PRN (22:30)
[2020-07-06] MEDS ORDERED: morphine SULFATE 10 MG/ML, 1ML IVPush PRN (22:30)
[2020-07-06] MEDS ORDERED: DOCUSATE 100 MG CAPSULE PO PRN (22:30)
[2020-07-06 22:57] LABS: MICROSCOPIC INDICATED
[2020-07-06 23:03] VITALS: BP 162/92
[2020-07-06] MEDS: NICOTINE 14MG/24 HR PATCH.TD24 TD SCH (23:52)
[2020-07-06] MEDS: ZOLPIDEM 10MG TABLET PO PRN (23:52)
[2020-07-07 01:38] LABS: BASOPHILS % (AUTO) 1 % (0-1); EOSINOPHILS % (AUTO) 2 % (1-7); LYMPHOCYTES % (AUTO) 13 % (22-44); MEAN CORPUSCULAR HGB CONC 34.3 g/dL (33.2-36.2); MEAN PLATELET VOLUME 9.5 fL (7.4-10.4); MONOCYTES % (AUTO) 12 % (2-9); NEUTROPHILS % (AUTO) 73 % (42-75); PLATELET COUNT 119 x10^3/uL (130-400); RED CELL DISTRIBUTION WIDTH 13.7 % (9.4-14.8)
[2020-07-07 01:43] LABS: MD NO
[2020-07-07 01:46] LABS: ANION GAP 7 mmol/L (5-15); CALCIUM 8.4 mg/dL (8.5-10.1); CHLORIDE 108 mmol/L (98-107); CREATININE 1.19 mg/dL (0.7-1.3)
[2020-07-07 01:56] LABS: TROPONIN I < 0.015 ng/mL (0.000-0.045)
[2020-07-07 06:44] VITALS: BP 147/75
[2020-07-07] MEDS ORDERED: POTASSIUM CHLORIDE 20 MEQ TAB.ER.PRT PO ONE (07:30)
[2020-07-07 08:12] VITALS: BP_SYST 125; BP_SYST 148; BP_SYST 162; BP_DIAS 89; BP_DIAS 90; BP_DIAS 92
[2020-07-07] MEDS ORDERED: LORazepam 2 MG/ML, 1ML IVPush ONE (08:30)
[2020-07-07 08:33] LABS: TROPONIN I < 0.015 ng/mL (0.000-0.045)
[2020-07-07] MEDS ORDERED: GADOTERATE 10 MMOL/20ML SYR ONE (11:04)
[2020-07-07 14:00] VITALS: BP 150/85
[2020-07-07] MEDS: METOPROLOL TARTRATE 25 MG TAB PO SCH (16:12)
[2020-07-07 18:58] VITALS: BP 148/84
[2020-07-07] MEDS: LOSARTAN 50MG TABLET PO SCH (20:07)
[2020-07-07] MEDS ORDERED: VENLAFAXINE XR 37.5MG CAP.ER.24H PO SCH (21:00)
[2020-07-07] MEDS: ZOLPIDEM 10MG TABLET PO PRN (21:47)
[2020-07-07 23:05] VITALS: BP 132/78
[2020-07-08] MEDS: NICOTINE 14MG/24 HR PATCH.TD24 TD SCH (00:10)
[2020-07-08 01:13] VITALS: BP 130/77
[2020-07-08 05:48] LABS: BASOPHILS % (AUTO) 1 % (0-1); EOSINOPHILS % (AUTO) 3 % (1-7); LYMPHOCYTES % (AUTO) 17 % (22-44); MEAN CORPUSCULAR HEMOGLOBIN 30.1 pg (27.5-34.5); MEAN CORPUSCULAR HGB CONC 34.2 g/dL (33.2-36.2); MEAN PLATELET VOLUME 9.6 fL (7.4-10.4); MONOCYTES % (AUTO) 12 % (2-9); NEUTROPHILS % (AUTO) 68 % (42-75); PLATELET COUNT 126 x10^3/uL (130-400); RED BLOOD COUNT 4.83 x10^6/uL (4.38-5.82); RED CELL DISTRIBUTION WIDTH 13.8 % (9.4-14.8)
[2020-07-08 05:49] LABS: MD NO
[2020-07-08 05:50] LABS: ALANINE AMINOTRANSFERASE 16 U/L (12-78); ALBUMIN 3.1 g/dL (3.4-5.0); ANION GAP 5 mmol/L (5-15); CALCIUM 8.6 mg/dL (8.5-10.1); CHLORIDE 108 mmol/L (98-107)
[2020-07-08 05:52] LABS: ALKALINE PHOSPHATASE 56 U/L (45-117); BILIRUBIN,TOTAL 0.7 mg/dL (0.2-1.0); CREATININE 1.13 mg/dL (0.7-1.3); TOTAL PROTEIN 6.5 g/dL (6.4-8.2)
[2020-07-08] MEDS: METOPROLOL TARTRATE 25 MG TAB PO SCH (06:24)
[2020-07-08 07:35] VITALS: BP 160/80
[2020-07-08] MEDS: LOSARTAN 50MG TABLET PO SCH (08:19)
[2020-07-08] MEDS ORDERED: APIXABAN 5 MG TABLET PO SCH (09:00)
[2020-07-08 13:14] VITALS: BP 150/83
== END 2020-07-08 15:50 | disposition home health service (06) | DRG 65 ==
LOC: ED 21:15 → INTOOBSV 21:28 → EDIP 21:28 → 5SO 22:05 → OBSVTOIN 07-07 15:03 → 5SO 07-08 00:42
PROVIDERS: ADMIT Internal Medicine; ATTEND Hospitalist
DX: I63.9 Cerebral infarction, unspecified (principal); I42.9 Cardiomyopathy, unspecified; I48.91 Unspecified atrial fibrillation; F17.210 Nicotine dependence, cigarettes, uncomplicated; F32.9 Major depressive disorder, single episode, unspecified; I50.9 Heart failure, unspecified; F41.9 Anxiety disorder, unspecified; I11.0 Hypertensive heart disease with heart failure; I25.2 Old myocardial infarction; Z79.01 Long term (current) use of anticoagulants; Z82.0 Family history of epilepsy and other diseases of the nervous system; Z86.73 Personal history of transient ischemic attack (TIA), and cerebral infarction without residual deficits; Z90.79 Acquired absence of other genital organ(s)
CPT/HCPCS: 36415; 70450; 70553; 71045; 80048; 80053; 81001; 83735; 83880; 84100; 84443; 84484; 85025; 87086; 93005; 99285; G0378; A9575; J2060

== ENCOUNTER 2020-07-29 14:28 | Inpatient (IN) | payer OTHER ==
[~2020-07-29] VITALS: Ht 180.3 cm; Wt 99.9 kg
[~2020-07-29 14:28] MED LIST changes: +ATOR40TA78 PO; +TRAZ50TA66 PO
[2020-07-29] MEDS ORDERED: DOCUSATE 100 MG CAPSULE PO PRN (16:00)
[2020-07-29] MEDS ORDERED: ACETAMINOPHEN 325 MG TABLET PO PRN (16:00)
[2020-07-29] MEDS ORDERED: POLYETHYLENE GLYCOL 17 GM PACKET PO PRN (16:00)
[2020-07-29] MEDS ORDERED: LIDODERM 5% PATCH TD PRN (16:00)
[2020-07-29] MEDS ORDERED: NITROGLYCERIN 0.4 MG BOTTLE (25 TABS) SL PRN (16:00)
[2020-07-29] MEDS ORDERED: BISACODYL 10 MG SUPP PR PRN (16:00)
[2020-07-29] MEDS ORDERED: ONDANSETRON ODT 4 MG PO PRN (16:00)
[2020-07-29] MEDS ORDERED: HYDROXYZINE PAMOATE 50MG CAP PO PRN (16:00)
[2020-07-29] MEDS: METOPROLOL TARTRATE 25 MG TAB PO SCH (18:38)
[2020-07-29 18:42] VITALS: BP 162/92
[2020-07-29 19:43] VITALS: BP 159/89
[2020-07-29] MEDS: ZOLPIDEM 10MG TABLET PO PRN (21:06)
[2020-07-29] MEDS: ATORVASTATIN 40 MG TABLET PO SCH (21:07)
[2020-07-29] MEDS: APIXABAN 5 MG TABLET PO SCH (21:07)
[2020-07-29] MEDS: HYDROXYZINE PAMOATE 25MG CAP PO PRN (21:25)
[2020-07-29] MEDS: LOSARTAN 50MG TABLET PO SCH (21:25)
[2020-07-30] MEDS: METOPROLOL TARTRATE 25 MG TAB PO SCH ×2 (06:11→18:00)
[2020-07-30 07:59] VITALS: BP_SYST 109; BP_SYST 130; BP_DIAS 68; BP_DIAS 77
[2020-07-30] MEDS: NICOTINE 7 MG/24 HR PATCH.TD24 TD SCH (08:35)
[2020-07-30] MEDS: APIXABAN 5 MG TABLET PO SCH ×2 (08:36→20:36)
[2020-07-30] MEDS: LOSARTAN 50MG TABLET PO SCH ×2 (08:36→20:53)
[2020-07-30] MEDS ORDERED: VENLAFAXINE XR 37.5MG CAP.ER.24H PO SCH (09:00)
[2020-07-30 09:46] LABS: CREATININE 1.26 mg/dL (0.7-1.3)
[2020-07-30 10:01] LABS: FREE T4 (FREE THYROXINE) 0.88 ng/dL (0.76-1.46)
[2020-07-30 19:41] VITALS: BP 151/87
[2020-07-30] MEDS: ATORVASTATIN 40 MG TABLET PO SCH (20:36)
[2020-07-30] MEDS: ZOLPIDEM 10MG TABLET PO PRN (20:52)
[2020-07-30] MEDS: HYDROXYZINE PAMOATE 25MG CAP PO PRN (20:52)
[2020-07-31 05:38] VITALS: BP 135/77
[2020-07-31] MEDS: METOPROLOL TARTRATE 25 MG TAB PO SCH ×2 (05:54→17:48)
[2020-07-31 07:48] VITALS: BP 154/80
[2020-07-31] MEDS: LOSARTAN 50MG TABLET PO SCH ×2 (09:15→21:01)
[2020-07-31] MEDS: APIXABAN 5 MG TABLET PO SCH ×2 (09:16→21:01)
[2020-07-31] MEDS: NICOTINE 7 MG/24 HR PATCH.TD24 TD SCH (09:16)
[2020-07-31] MEDS: VENLAFAXINE XR 37.5MG CAP.ER.24H PO SCH (09:16)
[2020-07-31 17:40] VITALS: BP 153/90
[2020-07-31 19:17] VITALS: BP 133/79
[2020-07-31] MEDS: ZOLPIDEM 10MG TABLET PO PRN (21:01)
[2020-07-31] MEDS: ATORVASTATIN 40 MG TABLET PO SCH (21:01)
[2020-07-31] MEDS: HYDROXYZINE PAMOATE 25MG CAP PO PRN (23:42)
[2020-08-01] MEDS: METOPROLOL TARTRATE 25 MG TAB PO SCH (06:09)
[2020-08-01 07:36] VITALS: BP 164/82
[2020-08-01] MEDS: NICOTINE 7 MG/24 HR PATCH.TD24 TD SCH (09:43)
[2020-08-01] MEDS: APIXABAN 5 MG TABLET PO SCH (09:43)
[2020-08-01] MEDS: LOSARTAN 50MG TABLET PO SCH (09:43)
[2020-08-01] MEDS: VENLAFAXINE XR 37.5MG CAP.ER.24H PO SCH (09:43)
[2020-08-01] MEDS ORDERED: VENL37.52 PO (14:29)
== END 2020-08-01 16:20 | disposition home or self-care (01) | DRG 885 ==
LOC: 3E 17:34
PROVIDERS: ADMIT Psychiatry & Neurology Psychosomatic Medicine; ATTEND Psychiatry & Neurology Psychosomatic Medicine
DX: F33.2 Major depressive disorder, recurrent severe without psychotic features (principal); I50.22 Chronic systolic (congestive) heart failure; R45.851 Suicidal ideations; F41.1 Generalized anxiety disorder; I11.0 Hypertensive heart disease with heart failure; F17.210 Nicotine dependence, cigarettes, uncomplicated; E78.5 Hyperlipidemia, unspecified; F41.0 Panic disorder [episodic paroxysmal anxiety]; G47.00 Insomnia, unspecified; I48.91 Unspecified atrial fibrillation; Z79.01 Long term (current) use of anticoagulants; Z86.73 Personal history of transient ischemic attack (TIA), and cerebral infarction without residual deficits; Z20.822 Contact with and (suspected) exposure to COVID-19
CPT/HCPCS: 36415; 82565; 84439; 84443; 87426; 92523-GN; Q0177

== ENCOUNTER 2020-08-06 12:23 | Emergency (ER) | payer OTHER ==
[~2020-08-06] VITALS: Ht 180.3 cm; Wt 97.6 kg
[~2020-08-06 12:23] MED LIST changes: +VENL37.52 PO
--- NOTE | 2020-08-06 12:40 | NUR ---
Late entry summary note: This pt was BIB EMS for SA. Pt took "45 pills of 100mg of Trazadone." Pt presents to the ER with 2 bottles of rx Trazadone that were filled on 08/04/20, total quantaty of 90 pills, one bottle full, one bottle empty. Per EMS pt was d/c'd from a SNF approx 6 days ago, after he was d/c'd from the hospital for a previous SA. Pt presents to the ER somulent with pinpoint pupils but roused to verbal and oriented x4. Pt connected all monitors, VSS. Pt sitting up right in bed to protect airway. Pt belongings placed in locker, shoes, pants, belt, cigerettes, no cell phone. Pt medication delivered to pharmacy and pt's wallet and connects to security. Report to primary RN Rach. Addendum: 08/06/20 at 1315 by ALFRED Late entry summary note: This pt was BIB EMS for SA. Pt took "45 pills of 100mg of Trazadone." Pt presents to the ER with 2 bottles of rx Trazadone that were filled on 08/04/20, total quantaty of 90 pills, one bottle full, one bottle empty. Per EMS pt was d/c'd from a SNF approx 6 days ago, after he was d/c'd from the hospital for a previous SA. When attempting to do suicide screen pt states "it's too much to talk about." Pt presents to the ER somulent with pinpoint pupils but roused to verbal and oriented x4. Pt connected all monitors, VSS. Pt sitting up right in bed to protect airway. Pt belongings placed in locker, shoes, pants, belt, cigerettes, no cell phone. Pt medication delivered to pharmacy and pt's wallet and connects to security. Report to primary RN Rach.
--- NOTE | 2020-08-06 12:44 | NUR ---
REBECCA YOUNGER after "the person at the office where I live" called EMS. Pt took a bottle of trazadone, states about 45 pills for 4.5g total in attempt to end his life. Dr. Figueroa at bedside for evaluation. pt sitting up vomiting in bed. approx 300 ml of emisis. pt attached to all monitors. vss. saunders.
[2020-08-06] MEDS ORDERED: MAGNESIUM SULFATE PMX 2GM/50ML 50 ML IV ONE (13:00)
[2020-08-06] MEDS ORDERED: SODIUM CHLORIDE 0.9% 1,000 ML IV ONE (13:00)
[2020-08-06] MEDS ORDERED: SODIUM CHLORIDE 0.9% 1,000ML IVBOLUS ONE (13:00)
[2020-08-06 13:07] LABS: BASOPHILS % (AUTO) 1 % (0-1); EOSINOPHILS % (AUTO) 1 % (1-7); LYMPHOCYTES % (AUTO) 12 % (22-44); MEAN CORPUSCULAR HEMOGLOBIN 29.9 pg (27.5-34.5); MEAN CORPUSCULAR HGB CONC 34.1 g/dL (33.2-36.2); MEAN PLATELET VOLUME 10.3 fL (7.4-10.4); MONOCYTES % (AUTO) 7 % (2-9); NEUTROPHILS % (AUTO) 80 % (42-75); PLATELET COUNT 95 x10^3/uL (130-400); RED BLOOD COUNT 4.63 x10^6/uL (4.38-5.82)
[2020-08-06 13:11] LABS: MD NO
--- NOTE | 2020-08-06 13:11 | NUR ---
SITTER AT BEDSIDE. [employer] SENT WITH SECURITY. REST OF BELONGINGS PLACED IN LOCKER FOR SAFE KEEPING. VSS. NADN. PT ASLEEP WITH EVEN AND UNLABORED RESPIRATIONS.
[2020-08-06 13:18] LABS: ALANINE AMINOTRANSFERASE 22 U/L (12-78); ALBUMIN 3.3 g/dL (3.4-5.0); ANION GAP 6 mmol/L (5-15); CALCIUM 8.1 mg/dL (8.5-10.1); CHLORIDE 111 mmol/L (98-107); CREATININE 1.16 mg/dL (0.7-1.3)
[2020-08-06 13:22] LABS: ALKALINE PHOSPHATASE 63 U/L (45-117); BILIRUBIN,TOTAL 0.5 mg/dL (0.2-1.0); SALICYLATE LEVEL < 1.7 mg/dL (2.8-20.0); TOTAL PROTEIN 6.7 g/dL (6.4-8.2)
[2020-08-06] MEDS ORDERED: MAGNESIUM SULFATE PMX 2GM/50ML 50 ML ONE (13:23)
--- NOTE | 2020-08-06 13:33 | NUR ---
pt medicated per emar. javis. nicky. sitter at bedside
[2020-08-06] MEDS ORDERED: NS + 40MEQ KCL 1,000 ML IV SCH (14:00)
[2020-08-06] MEDS ORDERED: CALCIUM GLUCONATE 4.6 MEQ in SODIUM CHLORIDE 0.9% 100 ML IV ONE (14:00)
[2020-08-06] MEDS ORDERED: CALCIUM GLUCONATE 0.46MEQ/1ML IVPush ONE (14:00)
[2020-08-06] MEDS ORDERED: NS + 40MEQ KCL 1,000 ML IV ONE (14:01)
--- NOTE | 2020-08-06 14:18 | NUR ---
THROUGHPUT RN: PT WITH DETENTION PLUS INSURANCE. PSN FAXED TO [phone]. CONFIRMATION RECEIVED. CALLED AND SPOKE W/ NIRMALA AT [facility] WHO DECLINED TRANSFER. CALLED AND SPOKE W/ JOSE CRUZ AT [facility] [place] WHO ACCEPTED TRANSFER.
--- NOTE | 2020-08-06 14:45 | NUR ---
PT UNABLE TO VOID. X3 ATTEMPTS. STRAIGHT CATH PER PROTOCOL. SAMPLE COLLECTED APPEARED TO BE BRIGHT SWAPNIL BLOOD. SAMPLE TO BE WALKED DOWN
--- NOTE | 2020-08-06 15:20 | NUR ---
Per lab, urine sample clotted and is unusable. aware. Will recollect.
--- NOTE | 2020-08-06 16:07 | NUR ---
report called to Maury HESS at [facility].
--- NOTE | 2020-08-06 16:27 | NUR ---
THROUGHPUT RN: SPOKE W/ PT INSURANCE AND RECEIVED AUTH# [id number]. CALLED AND SPOKE Cayetano/ CESAR AT [facility]. PT HAS [facility] SCHEDULED FOR PICKUP AT 1700 TO TRANSFER TO [facility] ROOM 219.
[2020-08-06 16:39] VITALS: BP 148/77
--- NOTE | 2020-08-06 16:39 | NUR ---
indwelling fontenot placed per protocol by Maryjo HESS.
--- NOTE | 2020-08-06 16:46 | NUR ---
report, patients belongings in locker, patients belongings in security, and patients medication in pharmacy given to EMS for transfer to [facility]
--- NOTE | 2020-08-06 16:52 | NUR ---
Indwelling fontenot cath placed per protocol. Pt attempted to urinate for UA multiple times. Straight cath for UA was unsuccessful as the sample clotted. Pt states being unable to pee is a not normally a problem for him. Pt had moderate amount of blood on gauze around penis, unable to tell if blood is coming from urethral trauma or bladder. Cath placed for urethral obstruction, possible need for hand irrigation of bladder and possible new onset urinary retention.
[2020-08-06 17:01] LABS: MICROSCOPIC INDICATED
[2020-08-06 17:14] LABS: AMPHETAMINE SCREEN, URINE Negative (Negative); BARBITURATE SCREEN, URINE Negative (Negative); BENZODIAZEPINE SCREEN, URINE Negative (Negative); CANNABINOID SCREEN, URINE Negative (Negative); COCAINE SCREEN, URINE Negative (Negative); METHADONE SCREEN, URINE Negative (Negative); OPIATE SCREEN, URINE Negative (Negative)
== END 2020-08-06 17:05 | disposition short-term general hospital (02) ==
LOC: ED 13:16
DX: T43.212A Poisoning by selective serotonin and norepinephrine reuptake inhibitors, intentional self-harm, initial encounter (principal); F33.9 Major depressive disorder, recurrent, unspecified; I48.92 Unspecified atrial flutter; I48.91 Unspecified atrial fibrillation; I25.2 Old myocardial infarction; I11.0 Hypertensive heart disease with heart failure; I50.9 Heart failure, unspecified; Z86.73 Personal history of transient ischemic attack (TIA), and cerebral infarction without residual deficits; Y92.89 Other specified places as the place of occurrence of the external cause
CPT/HCPCS: 36415; 71045; 80053; 80299; 80307; 80320; 80329; 81001; 83735; 84100; 85025; 87086; 93005; 96361; 96365; 96366; 96368; 99285; J0610; J3475; J3480; J7030; G0480

== ENCOUNTER 2020-08-16 19:58 | Emergency (ER) | payer OTHER ==
[~2020-08-16] VITALS: Ht 180.3 cm; Wt 98.0 kg
--- NOTE | 2020-08-16 20:01 | NUR ---
PT TO ED VIA EMS, FROM HOME. STATES HE WAS WALKING DOWN THE HALLWAY AT [facility] WHEN HE FELT DIZZY & B/L LEG WEAKNESS. PT STATES HE SLID AGAINST THE WALL AND SAT ON THE FLOOR UNTIL EMS ARRIVED. PT A&OX4. RR EVEN NON LABORED. DENIES ANY CP. STATES MILD DIZZINESS. MD AT BS. ATTACHED TO ALL MONITORS.
--- NOTE | 2020-08-16 20:20 | NUR ---
PIV ESTB, PT BEGAN SHOUTING AND C/O B/L LEG PAIN. PT ATTEMPTING TO GET UP OUT OF BED & SCREAM PROFANITIES AT STAFF, MD AWARE, TO BEDSIDE, WILL MONITOR FOR ORDERS.
--- NOTE | 2020-08-16 20:29 | NUR ---
PT TO CT
[2020-08-16] MEDS ORDERED: ONDANSETRON 2MG/ML, 2ML IVPush ONE (20:30)
[2020-08-16] MEDS ORDERED: MECLIZINE CHEWABLE 25 MG TAB PO ONE (20:30)
[2020-08-16] MEDS ORDERED: SODIUM CHLORIDE FLUSH 10ML SYR IVF ONE (20:30)
[2020-08-16] MEDS ORDERED: HYDROmorphone 1 MG/ML, 1ML INJ IVPush PRN (20:30)
[2020-08-16] MEDS ORDERED: HYDROmorphone 1 MG/ML, 1ML INJ ONE (20:31)
[2020-08-16] MEDS ORDERED: ONDANSETRON 2MG/ML, 2ML ONE (20:31)
[2020-08-16] MEDS ORDERED: MECLIZINE CHEWABLE 25 MG TAB ONE (20:31)
[2020-08-16 20:37] LABS: BASOPHILS % (AUTO) 1 % (0-1); EOSINOPHILS % (AUTO) 3 % (1-7); LYMPHOCYTES % (AUTO) 22 % (22-44); MEAN CORPUSCULAR HEMOGLOBIN 29.8 pg (27.5-34.5); MEAN CORPUSCULAR HGB CONC 33.8 g/dL (33.2-36.2); MEAN PLATELET VOLUME 10.1 fL (7.4-10.4); MONOCYTES % (AUTO) 9 % (2-9); NEUTROPHILS % (AUTO) 64 % (42-75); PLATELET COUNT 123 x10^3/uL (130-400); RED BLOOD COUNT 4.81 x10^6/uL (4.38-5.82)
[2020-08-16 20:39] LABS: MD NO
[2020-08-16 20:44] LABS: ALANINE AMINOTRANSFERASE 21 U/L (12-78); ALBUMIN 3.2 g/dL (3.4-5.0); ANION GAP 5 mmol/L (5-15); CALCIUM 8.8 mg/dL (8.5-10.1); CHLORIDE 109 mmol/L (98-107); CREATININE 1.33 mg/dL (0.7-1.3)
[2020-08-16 20:48] LABS: ALKALINE PHOSPHATASE 79 U/L (45-117); BILIRUBIN,TOTAL 0.2 mg/dL (0.2-1.0); TOTAL PROTEIN 7.2 g/dL (6.4-8.2); TROPONIN I < 0.015 ng/mL (0.000-0.045)
--- NOTE | 2020-08-16 21:39 | NUR ---
BACK FROM CT
--- NOTE | 2020-08-16 22:23 | NUR ---
URINE COLLECTED. RESTING ON CART IN NAD. CALM & COOPERATIVE. WILL CTM.
[2020-08-16] MEDS ORDERED: SODIUM CHLORIDE FLUSH 10ML SYR IVF PRN (22:30)
[2020-08-16 22:32] LABS: MICROSCOPIC AUTO
[2020-08-16 23:57] VITALS: BP 130/77
== END 2020-08-17 00:49 | disposition short-term general hospital (02) ==
LOC: ED 20:55
DX: R55 Syncope and collapse (principal); R51.9 Headache, unspecified; R42 Dizziness and giddiness; R53.1 Weakness; I11.0 Hypertensive heart disease with heart failure; I50.9 Heart failure, unspecified; I48.91 Unspecified atrial fibrillation; R94.31 Abnormal electrocardiogram [ECG] [EKG]; F17.200 Nicotine dependence, unspecified, uncomplicated; Z86.73 Personal history of transient ischemic attack (TIA), and cerebral infarction without residual deficits; Z86.718 Personal history of other venous thrombosis and embolism
CPT/HCPCS: 36415; 70450; 80053; 81001; 84484; 85025; 87077; 87086; 93005; 93970; 96374; 96375; 99285; J1170; J2405; 87186

== ENCOUNTER 2020-08-23 19:38 | Emergency (ER) | payer OTHER ==
[~2020-08-23] VITALS: Ht 180.3 cm; Wt 102.0 kg
--- NOTE | 2020-08-23 19:42 | NUR ---
1928 - CODE NEURO CALLED 1939 - PT IN TO TRAUMA 4 1940 - CODE NEURO CANCELLED
[2020-08-23 19:46] VITALS: BP 143/86
--- NOTE | 2020-08-23 20:05 | NUR ---
code neuro cancelled. patient still hyperventilating. aware.
--- NOTE | 2020-08-23 20:06 | NUR ---
refused IV and blood draw.
[2020-08-23] MEDS ORDERED: LORazepam 1MG TABLET PO ONE (20:30)
[2020-08-23] MEDS ORDERED: LORazepam 1MG TABLET ONE (20:37)
[2020-08-23 20:48] LABS: BASOPHILS % (AUTO) 1 % (0-1); EOSINOPHILS % (AUTO) 5 % (1-7); LYMPHOCYTES % (AUTO) 16 % (22-44); MD NO; MEAN CORPUSCULAR HEMOGLOBIN 29.4 pg (27.5-34.5); MEAN CORPUSCULAR HGB CONC 34.2 g/dL (33.2-36.2); MEAN PLATELET VOLUME 9.4 fL (7.4-10.4); MONOCYTES % (AUTO) 9 % (2-9); NEUTROPHILS % (AUTO) 69 % (42-75); PLATELET COUNT 181 x10^3/uL (130-400); RED BLOOD COUNT 4.59 x10^6/uL (4.38-5.82); RED CELL DISTRIBUTION WIDTH 13.9 % (9.4-14.8)
[2020-08-23 20:55] LABS: ANION GAP 5 mmol/L (5-15); CALCIUM 8.6 mg/dL (8.5-10.1); CHLORIDE 107 mmol/L (98-107); CREATININE 1.38 mg/dL (0.7-1.3)
--- NOTE | 2020-08-23 21:05 | NUR ---
MRI screening questionnaire done and faxed. patient to MRI.
[2020-08-23] MEDS ORDERED: HALOPERIDOL 5 MG/ML ONE (21:19)
--- NOTE | 2020-08-23 21:25 | NUR ---
patient was uncooperative to MRI staff, became combative and screaming. MD aware. medicated. continue to scream and unable to do MRI. wheeled back to room.
[2020-08-23] MEDS ORDERED: HALOPERIDOL 5 MG/ML IV ONE (21:30)
--- NOTE | 2020-08-23 21:35 | NUR ---
MRI CALLED SAYING PT SCREAMING AT THE TOP OF HIS LUNGS, AND WON'T COMPLY WITH MRI AND MRI NOT DONE. PT BACK TO ROOM. SCREAMING AND UNABLE TO EXPRESS WHAT'S WRONG. JUST KEEPS SAYING HELP ME. ATTEMPTED TO PUT PT ON CR MONITOR, BUT CONTINUES TO GET UP TO WALK AND DISCONNECTS FROM THE MONITOR. MD TO BEDSIDE. PT RECEIVED HALDOL PER EMAR ORDER BY PREVIOUS RN.
--- NOTE | 2020-08-23 21:36 | NUR ---
MD at bedside talking to patient. patient yelling at MD. states that he is leaving at the top of his lungs.
--- NOTE | 2020-08-23 21:40 | NUR ---
patient became more combative. Security called. patient escorted out. patient able to walk with steady gait, no slurred speech. no neuro deficit.
--- NOTE | 2020-08-23 21:49 | NUR ---
patient left against medical advise.
== END 2020-08-23 21:52 | disposition left against medical advice (07) ==
LOC: ED 20:47
DX: F41.0 Panic disorder [episodic paroxysmal anxiety] (principal); R20.0 Anesthesia of skin; R42 Dizziness and giddiness; R06.02 Shortness of breath; I10 Essential (primary) hypertension; I25.2 Old myocardial infarction; I48.91 Unspecified atrial fibrillation; Z86.73 Personal history of transient ischemic attack (TIA), and cerebral infarction without residual deficits
CPT/HCPCS: 36415; 80048; 85025; 93005; 96374; 99284; J1630

== ENCOUNTER 2020-08-24 19:50 | Inpatient (IN) | payer OTHER ==
[~2020-08-24] VITALS: Ht 180.3 cm; Wt 105.3 kg
--- NOTE | 2020-08-24 19:57 | NUR ---
PT BIBA. PER EMS PT IS COMPLAINING OF R LEG NUMBNESS AND DIZZINESS. PT WAS SEEN HERE FOR SAME YESTERDAY. PT STATES HE HAS BEEN SEEN AT [facility] YESTERDAY, BUT HASN'T FOLLOWED UP WITH REFERRALS. PT RESTING IN [facility], MONITORING IN PLACE, EKG DONE, STEPHANY SHETTY AT BEDSIDE, WILBER AT THIS TIME, PT STATES NO PAIN AT THIS TIME, WCTM.
[2020-08-24 20:28] LABS: BASOPHILS % (AUTO) 1 % (0-1); EOSINOPHILS % (AUTO) 7 % (1-7); LYMPHOCYTES % (AUTO) 15 % (22-44); MEAN CORPUSCULAR HEMOGLOBIN 29.7 pg (27.5-34.5); MEAN CORPUSCULAR HGB CONC 34.1 g/dL (33.2-36.2); MEAN PLATELET VOLUME 9.2 fL (7.4-10.4); MONOCYTES % (AUTO) 8 % (2-9); NEUTROPHILS % (AUTO) 69 % (42-75); PLATELET COUNT 173 x10^3/uL (130-400); RED BLOOD COUNT 4.62 x10^6/uL (4.38-5.82); RED CELL DISTRIBUTION WIDTH 13.6 % (9.4-14.8)
[2020-08-24 20:29] LABS: MD NO
[2020-08-24 20:30] LABS: ANION GAP 4 mmol/L (5-15); CALCIUM 8.6 mg/dL (8.5-10.1); CHLORIDE 109 mmol/L (98-107); CREATININE 1.21 mg/dL (0.7-1.3)
[2020-08-24] MEDS ORDERED: LORazepam 1MG TABLET ONE (21:16)
[2020-08-24] MEDS ORDERED: LORazepam 1MG TABLET PO ONE (21:30)
[2020-08-24 23:22] VITALS: BP 118/71
[2020-08-24] MEDS ORDERED: POLYETHYLENE GLYCOL 17 GM PACKET PO PRN (23:30)
[2020-08-24] MEDS ORDERED: BISACODYL 10 MG SUPP PR PRN (23:30)
[2020-08-24] MEDS ORDERED: ONDANSETRON ODT 4 MG PO PRN (23:30)
[2020-08-24] MEDS ORDERED: ONDANSETRON 2MG/ML, 2ML IVPush PRN (23:30)
[2020-08-24] MEDS: LOSARTAN 50MG TABLET PO SCH (23:30)
[2020-08-24] MEDS ORDERED: ZOLPIDEM 10MG TABLET PO PRN (23:30)
[2020-08-24] MEDS ORDERED: ACETAMINOPHEN 325 MG TABLET PO PRN (23:30)
[2020-08-24] MEDS ORDERED: DOCUSATE 100 MG CAPSULE PO PRN (23:30)
[2020-08-24] MEDS ORDERED: hydrALAzine 20 MG/ML, 1ML IVPush PRN (23:30)
[2020-08-24] MEDS ORDERED: PROMETHAZINE 25 MG/ML, 1ML IM PRN (23:30)
[2020-08-24] MEDS ORDERED: OXYcodone IR 5MG TABLET PO PRN (23:30)
[2020-08-25] MEDS: APIXABAN 5 MG TABLET PO SCH ×3 (00:03→20:42)
[2020-08-25] MEDS: ATORVASTATIN 40 MG TABLET PO SCH ×2 (00:03→20:42)
[2020-08-25 01:43] VITALS: BP 146/74
[2020-08-25] MEDS: METOPROLOL TARTRATE 25 MG TAB PO SCH ×2 (05:49→17:54)
[2020-08-25] MEDS: ASPIRIN 81 MG TABLET EC PO SCH (05:49)
[2020-08-25 05:51] VITALS: BP 142/80
[2020-08-25 06:13] LABS: BASOPHILS % (AUTO) 1 % (0-1); EOSINOPHILS % (AUTO) 8 % (1-7); LYMPHOCYTES % (AUTO) 14 % (22-44); MEAN CORPUSCULAR HEMOGLOBIN 29.3 pg (27.5-34.5); MEAN CORPUSCULAR HGB CONC 34.3 g/dL (33.2-36.2); MONOCYTES % (AUTO) 7 % (2-9); NEUTROPHILS % (AUTO) 70 % (42-75); PLATELET COUNT 175 x10^3/uL (130-400); RED BLOOD COUNT 4.49 x10^6/uL (4.38-5.82); RED CELL DISTRIBUTION WIDTH 13.6 % (9.4-14.8)
[2020-08-25 06:14] LABS: MD NO
[2020-08-25 06:28] LABS: ALBUMIN 2.9 g/dL (3.4-5.0); ANION GAP 6 mmol/L (5-15); CALCIUM 8.1 mg/dL (8.5-10.1); CHLORIDE 110 mmol/L (98-107)
[2020-08-25 06:37] LABS: ALANINE AMINOTRANSFERASE 20 U/L (12-78); ALKALINE PHOSPHATASE 62 U/L (45-117); BILIRUBIN,TOTAL 0.3 mg/dL (0.2-1.0); CHOL/HDL RATIO 2.1; CHOLESTEROL, TOTAL 96 mg/dL (140-239); CREATININE 1.12 mg/dL (0.7-1.3); HDL CHOL % 47 % (26-37); HDL CHOLESTEROL (DIRECT) 45 mg/dL (40-60); LDL CHOLESTEROL,CALCULATED 32 mg/dL (54-169); LDL/HDL RATIO 0.7 (0.5-3.0); TOTAL PROTEIN 6.8 g/dL (6.4-8.2); TRIGLYCERIDES 93 mg/dL (50-200); VLDL CHOLESTEROL 19 mg/dL (0-25)
[2020-08-25 06:47] VITALS: BP 121/73
[2020-08-25] MEDS: LOSARTAN 50MG TABLET PO SCH ×2 (08:21→20:42)
[2020-08-25] MEDS: VENLAFAXINE 75 MG CAP ER PO SCH (08:21)
[2020-08-25] MEDS ORDERED: LORazepam 2 MG/ML, 1ML IVPush ONE (11:00)
[2020-08-25] MEDS ORDERED: LORazepam 2 MG/ML, 1ML ONE (11:01)
[2020-08-25 14:21] VITALS: BP 128/76
[2020-08-25] MEDS: LORazepam 2 MG/ML, 1ML IVPush PRN ×2 (14:49→21:46)
[2020-08-25 18:33] VITALS: BP 149/87
[2020-08-26 00:51] VITALS: BP 159/84
[2020-08-26] MEDS: ASPIRIN 81 MG TABLET EC PO SCH (06:28)
[2020-08-26] MEDS: METOPROLOL TARTRATE 25 MG TAB PO SCH (06:28)
[2020-08-26 07:01] VITALS: BP 155/85
[2020-08-26] MEDS: LOSARTAN 50MG TABLET PO SCH (08:20)
[2020-08-26] MEDS: APIXABAN 5 MG TABLET PO SCH (08:20)
[2020-08-26] MEDS: VENLAFAXINE 75 MG CAP ER PO SCH (08:20)
[2020-08-26] MEDS ORDERED: LORazepam 1MG TABLET PO PRN (08:30)
== END 2020-08-26 11:03 | disposition left against medical advice (07) | DRG 65 ==
LOC: ED 20:08 → EDIP 23:01 → 4EST 23:08
PROVIDERS: ADMIT Internal Medicine; ATTEND Family Medicine
DX: I63.9 Cerebral infarction, unspecified (principal); D68.69 Other thrombophilia; I50.22 Chronic systolic (congestive) heart failure; I11.0 Hypertensive heart disease with heart failure; F41.1 Generalized anxiety disorder; I48.91 Unspecified atrial fibrillation; F17.210 Nicotine dependence, cigarettes, uncomplicated; F41.0 Panic disorder [episodic paroxysmal anxiety]; F32.9 Major depressive disorder, single episode, unspecified; Z53.29 Procedure and treatment not carried out because of patient's decision for other reasons; Z79.899 Other long term (current) drug therapy; I25.2 Old myocardial infarction; I65.21 Occlusion and stenosis of right carotid artery; R29.700 NIHSS score 0; Z79.01 Long term (current) use of anticoagulants; F17.200 Nicotine dependence, unspecified, uncomplicated
CPT/HCPCS: 36415; 70551; 80048; 80053; 80061; 83036; 83735; 84100; 84443; 85025; 93005; 99285; G0378; J2060

== ENCOUNTER 2020-08-29 15:45 | Observation (INO) | payer OTHER ==
[~2020-08-29] VITALS: Ht 180.3 cm; Wt 101.8 kg
--- NOTE | 2020-08-29 15:56 | NUR ---
ASSUMED CARE OF PATIENT. PATIENT BIB [facility] FOR MULINO CHEST PAIN 09/01 THAT STARTED AT 1430. VS STABLE. NO ACUTE DISTRESS NOTED. CALL LIGHT IN PLACE. EKG DONE. CIVIL PROCESS SERVER ON. NSR NOTED. I WILL CONTINUE TO MONITOR.
--- NOTE | 2020-08-29 17:09 | NUR ---
PT USED URINAL. VS STABLE. VOCAL MUSIC INSTRUCTOR ON. NSR NOTED. CALL LIGHT IN PLACE. WILL CONTINUE TO MONITOR.
[2020-08-29 17:28] LABS: BASOPHILS % (AUTO) 1 % (0-1); EOSINOPHILS % (AUTO) 4 % (1-7); LYMPHOCYTES % (AUTO) 18 % (22-44); MD NO; MEAN CORPUSCULAR HEMOGLOBIN 29.5 pg (27.5-34.5); MEAN CORPUSCULAR HGB CONC 34.2 g/dL (33.2-36.2); MONOCYTES % (AUTO) 6 % (2-9); NEUTROPHILS % (AUTO) 71 % (42-75); PLATELET COUNT 158 x10^3/uL (130-400); RED BLOOD COUNT 4.36 x10^6/uL (4.38-5.82); RED CELL DISTRIBUTION WIDTH 13.8 % (9.4-14.8)
[2020-08-29 17:40] LABS: INTERNATIONAL NORMALIZED RATIO 1.02 (0.93-1.1); PROTHROMBIN TIME 10.9 Seconds (9.6-11.5)
--- NOTE | 2020-08-29 17:41 | NUR ---
PT REPORTS THAT HIS RIGHT LEG "HAS NOT BEEN WORKING RIGHT" FOR WEEKS, BUT IS WORSE TODAY. DR MARTINEZ AWARE.
--- NOTE | 2020-08-29 17:54 | NUR ---
PT WENT TO CT
[2020-08-29 17:59] LABS: ANION GAP 5 mmol/L (5-15); CHLORIDE 110 mmol/L (98-107)
[2020-08-29] MEDS ORDERED: OMNIPAQUE 350 MG/ML, 100ML BOTTLE ONE (18:00)
--- NOTE | 2020-08-29 18:34 | NUR ---
PT BACK FROM CT AND WATCHING TV. VS STABLE. NO ACUTE DISTRESS NOTED. CALL LIGHT IN PLACE. WILL CONTINUE TO MONITOR.
--- NOTE | 2020-08-29 19:15 | NUR ---
DR MARTINEZ OKAYED PATEINT TO HAVE CRACKERS.
[2020-08-29 21:00] VITALS: BP 136/86
[2020-08-29] MEDS ORDERED: NICOTINE 7 MG/24 HR PATCH.TD24 TD SCH (21:00)
[2020-08-29] MEDS ORDERED: LORazepam 1MG TABLET PO PRN (21:00)
[2020-08-29] MEDS ORDERED: ATORVASTATIN 40 MG TABLET PO SCH (23:30)
[2020-08-29] MEDS ORDERED: ACETAMINOPHEN 325 MG TABLET PO PRN (23:30)
[2020-08-29] MEDS ORDERED: NITROGLYCERIN 0.4 MG BOTTLE (25 TABS) SL PRN (23:30)
[2020-08-29] MEDS ORDERED: PROMETHAZINE 25 MG/ML, 1ML IM PRN (23:30)
[2020-08-29] MEDS ORDERED: ZOLPIDEM 10MG TABLET PO PRN (23:30)
[2020-08-29] MEDS ORDERED: morphine SULFATE 10 MG/ML, 1ML IV PRN (23:30)
[2020-08-29] MEDS ORDERED: LABETALOL 5MG/ML, 20ML IVPush PRN (23:30)
[2020-08-30] MEDS: APIXABAN 5 MG TABLET PO SCH ×2 (00:04→09:47)
[2020-08-30] MEDS: LOSARTAN 50MG TABLET PO SCH ×2 (00:04→09:47)
[2020-08-30 00:12] VITALS: BP 119/73
[2020-08-30 00:18] LABS: TROPONIN I < 0.015 ng/mL (0.000-0.045)
[2020-08-30 04:44] LABS: BASOPHILS % (AUTO) 1 % (0-1); EOSINOPHILS % (AUTO) 4 % (1-7); LYMPHOCYTES % (AUTO) 20 % (22-44); MEAN CORPUSCULAR HEMOGLOBIN 29.1 pg (27.5-34.5); MEAN CORPUSCULAR HGB CONC 33.4 g/dL (33.2-36.2); MEAN PLATELET VOLUME 9.3 fL (7.4-10.4); MONOCYTES % (AUTO) 8 % (2-9); NEUTROPHILS % (AUTO) 67 % (42-75); PLATELET COUNT 146 x10^3/uL (130-400); RED BLOOD COUNT 4.37 x10^6/uL (4.38-5.82); RED CELL DISTRIBUTION WIDTH 13.9 % (9.4-14.8)
[2020-08-30 04:46] LABS: MD NO
[2020-08-30 04:54] LABS: ANION GAP 2 mmol/L (5-15); CALCIUM 8.1 mg/dL (8.5-10.1); CHLORIDE 112 mmol/L (98-107)
[2020-08-30 04:59] LABS: CHOL/HDL RATIO 2.2; CHOLESTEROL, TOTAL 94 mg/dL (140-239); CREATININE 1.11 mg/dL (0.7-1.3); HDL CHOL % 45 % (26-37); HDL CHOLESTEROL (DIRECT) 42 mg/dL (40-60); LDL CHOLESTEROL,CALCULATED 36 mg/dL (54-169); LDL/HDL RATIO 0.9 (0.5-3.0); TRIGLYCERIDES 82 mg/dL (50-200); TROPONIN I < 0.015 ng/mL (0.000-0.045); VLDL CHOLESTEROL 16 mg/dL (0-25)
[2020-08-30] MEDS ORDERED: METOPROLOL TARTRATE 25 MG TAB PO SCH (06:00)
[2020-08-30 07:14] VITALS: BP 120/78
[2020-08-30] MEDS ORDERED: VENLAFAXINE 75 MG CAP ER PO SCH (09:00)
== END 2020-08-30 13:01 | disposition left against medical advice (07) ==
LOC: ED 16:20 → INTOOBSV 18:52 → EDIP 18:52 → 4EST 19:54
PROVIDERS: ADMIT Family Medicine; ATTEND Internal Medicine
DX: R07.89 Other chest pain (principal); R53.1 Weakness; R20.0 Anesthesia of skin; I11.0 Hypertensive heart disease with heart failure; I50.22 Chronic systolic (congestive) heart failure; E78.5 Hyperlipidemia, unspecified; I48.91 Unspecified atrial fibrillation; D68.69 Other thrombophilia; F41.0 Panic disorder [episodic paroxysmal anxiety]; F41.8 Other specified anxiety disorders; Z86.73 Personal history of transient ischemic attack (TIA), and cerebral infarction without residual deficits; Z87.891 Personal history of nicotine dependence; Z79.899 Other long term (current) drug therapy
CPT/HCPCS: 36415; 70450; 70496; 70498; 71045; 80047; 80048; 80061; 82040; 83735; 83880; 84100; 84484; 85025; 85610; 85730; 93005; 93017; 99285; G0378; Q9967

== ENCOUNTER 2020-09-11 22:04 | Emergency (ER) | payer OTHER ==
[~2020-09-11] VITALS: Ht 180.3 cm; Wt 97.0 kg
[2020-09-11] MEDS ORDERED: SODIUM CHLORIDE 0.9% 1,000ML IVBOLUS ONE (22:30)
[2020-09-11] MEDS ORDERED: SODIUM CHLORIDE FLUSH 10ML SYR IVF ONE (22:30)
[2020-09-11 22:38] LABS: BASOPHILS % (AUTO) 1 % (0-1); EOSINOPHILS % (AUTO) 2 % (1-7); LYMPHOCYTES % (AUTO) 18 % (22-44); MEAN CORPUSCULAR HEMOGLOBIN 29.7 pg (27.5-34.5); MEAN CORPUSCULAR HGB CONC 34.3 g/dL (33.2-36.2); MEAN PLATELET VOLUME 9.2 fL (7.4-10.4); MONOCYTES % (AUTO) 9 % (2-9); NEUTROPHILS % (AUTO) 71 % (42-75); PLATELET COUNT 117 x10^3/uL (130-400); RED BLOOD COUNT 4.81 x10^6/uL (4.38-5.82); RED CELL DISTRIBUTION WIDTH 14.9 % (9.4-14.8)
[2020-09-11 22:43] LABS: MD NO
--- NOTE | 2020-09-11 22:44 | NUR ---
AJAY. PT WAS WALKING TO [facility] WHEN HE CALLED EMS BECAUSE OF RECENT SYNCOPE EPISODES. WAS AT [facility] YESTERDAY FOR SYNCOPE EPISODE AND AWAITING RESULTS FROM LABS AND DIAGNOSTICS. PT REPORT HAVING A SYNCOPE EPISODE HITTING, LOC, AND HITTING FOREHEAD. PT STATED DIZZINESS AND SOB. ATTACHED TO CARD/SP02/BP MONITORS. VSS. BED IN LOW POSITION. RAILS ENGAGED CALIIGHT WITHIN REACH. TM DENIES CP
[2020-09-11 22:46] LABS: ALANINE AMINOTRANSFERASE 17 U/L (12-78); ALBUMIN 3.3 g/dL (3.4-5.0); ANION GAP 7 mmol/L (5-15); CALCIUM 8.6 mg/dL (8.5-10.1); CHLORIDE 107 mmol/L (98-107); CREATININE 1.02 mg/dL (0.7-1.3)
[2020-09-11 22:51] LABS: ALKALINE PHOSPHATASE 60 U/L (45-117); BILIRUBIN,TOTAL 0.6 mg/dL (0.2-1.0); TOTAL PROTEIN 6.8 g/dL (6.4-8.2); TROPONIN I < 0.015 ng/mL (0.000-0.045)
[2020-09-11 23:50] VITALS: BP 163/75
--- NOTE | 2020-09-11 23:53 | NUR ---
PT REFUSED DC VITALS. UPON BEING TOLD PT WAS GOING TO BE DISCHARGED PT BECAME UPSET, YELLING AT THE DOCTORS, AND PULLING OUT HIS IV. PT AMBULATED TO DC DESK WITH STEADY GAIT. GIVEN TAXI VOUCHER. UNDERSTOOD DC INSTRUCTIONS. NO PERSONAL BELONGINGS LEFT IN ROOM. NAD. DENIES ADDITIONAL QUESTIONS AND NEEDS.
== END 2020-09-12 00:10 | disposition home or self-care (01) ==
LOC: ED 22:34
DX: R55 Syncope and collapse (principal); Z72.9 Problem related to lifestyle, unspecified; R42 Dizziness and giddiness; R06.02 Shortness of breath; I11.0 Hypertensive heart disease with heart failure; I50.9 Heart failure, unspecified; I25.2 Old myocardial infarction; R94.31 Abnormal electrocardiogram [ECG] [EKG]; I48.91 Unspecified atrial fibrillation; Z87.891 Personal history of nicotine dependence; Z86.73 Personal history of transient ischemic attack (TIA), and cerebral infarction without residual deficits
CPT/HCPCS: 36415; 71045; 80053; 83880; 84484; 85025; 93005; 96360; 99285; J7030

== ENCOUNTER 2020-09-12 14:49 | Emergency (ER) | payer OTHER ==
[~2020-09-12] VITALS: Ht 180.3 cm; Wt 104.3 kg
[2020-09-12 14:59] VITALS: BP 151/82
--- NOTE | 2020-09-12 15:03 | NUR ---
WELDER GUN: EKG COMPLETE IN TRIAGE.
--- NOTE | 2020-09-12 17:47 | NUR ---
[id number]
--- NOTE | 2020-09-12 17:59 | NUR ---
TASK RN: NOT IN LOBBY WHEN CALLED FOR ROOM
--- NOTE | 2020-09-12 18:12 | NUR ---
REMEDIAL MASSEUR: PT NOT IN LOBBY WHEN CALLED FOR ROOM. CONFIRMED NOT IN RADIOLOGY OR LAB. PT PRESUMED TO HAVE LEFT.
== END 2020-09-12 18:14 | disposition left against medical advice (07) ==
LOC: ED 15:00
DX: R55 Syncope and collapse (principal)
CPT/HCPCS: 93005; 99283

== ENCOUNTER 2020-09-13 13:03 | Emergency (ER) | payer OTHER ==
[~2020-09-13] VITALS: Ht 180.3 cm; Wt 98.0 kg
--- NOTE | 2020-09-13 13:14 | NUR ---
PT brought in by AREN with chief complaint of dizzy/syncopal event with left leg numbness. PT reports hitting forehead, on eliquis. Pt denies pain, sob, cp, n/v
--- NOTE | 2020-09-13 14:05 | NUR ---
ermd at bedside for eval
[2020-09-13 14:40] LABS: BASOPHILS % (AUTO) 1 % (0-1); EOSINOPHILS % (AUTO) 2 % (1-7); LYMPHOCYTES % (AUTO) 17 % (22-44); MEAN CORPUSCULAR HEMOGLOBIN 29.7 pg (27.5-34.5); MEAN CORPUSCULAR HGB CONC 34.1 g/dL (33.2-36.2); MEAN PLATELET VOLUME 9.8 fL (7.4-10.4); MONOCYTES % (AUTO) 9 % (2-9); NEUTROPHILS % (AUTO) 72 % (42-75); PLATELET COUNT 128 x10^3/uL (130-400); RED BLOOD COUNT 4.99 x10^6/uL (4.38-5.82); RED CELL DISTRIBUTION WIDTH 14.9 % (9.4-14.8)
[2020-09-13 14:43] LABS: MD NO
[2020-09-13 14:51] LABS: ALBUMIN 3.6 g/dL (3.4-5.0); ANION GAP 4 mmol/L (5-15); CALCIUM 8.6 mg/dL (8.5-10.1); CHLORIDE 105 mmol/L (98-107); CREATININE 1.21 mg/dL (0.7-1.3)
[2020-09-13 14:55] LABS: TROPONIN I < 0.015 ng/mL (0.000-0.045)
--- NOTE | 2020-09-13 15:21 | NUR ---
PT RESTING IN BED, CALL LIGHT IN REACH
--- NOTE | 2020-09-13 16:32 | NUR ---
ermd at bedside to discuss poc, snack provided.
[2020-09-13 16:38] VITALS: BP 135/90
== END 2020-09-13 17:50 | disposition left against medical advice (07) ==
LOC: ED 13:13
DX: R55 Syncope and collapse (principal); R07.89 Other chest pain; R42 Dizziness and giddiness; I11.9 Hypertensive heart disease without heart failure; R94.31 Abnormal electrocardiogram [ECG] [EKG]
CPT/HCPCS: 36415; 71045; 80048; 82040; 84484; 85025; 93005; 99285

== ENCOUNTER 2020-09-15 08:23 | Emergency (ER) | payer OTHER ==
[~2020-09-15] VITALS: Ht 180.3 cm; Wt 97.7 kg
--- NOTE | 2020-09-15 09:10 | NUR ---
assumed care of pt. report from Evaristo HESS. 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 per report, pt reports that he has had "mulitple" syncopal events and thaat he has had previosu workups for same. pt currently A&O x4. resting on gurney in position of comfort. no family at bedside. NSR on monitor
--- NOTE | 2020-09-15 09:20 | NUR ---
Evaristo RN at bedside for US IV placement
--- NOTE | 2020-09-15 10:10 | NUR ---
lab to redraw
--- NOTE | 2020-09-15 10:24 | NUR ---
tech at bedside for orthostatic B/P
[2020-09-15 10:28] LABS: ALBUMIN 3.7 g/dL (3.4-5.0); ANION GAP 4 mmol/L (5-15); CALCIUM 8.7 mg/dL (8.5-10.1); CHLORIDE 107 mmol/L (98-107)
[2020-09-15 10:32] LABS: TROPONIN I < 0.015 ng/mL (0.000-0.045)
--- NOTE | 2020-09-15 10:43 | NUR ---
pt in RAD
[2020-09-15 11:03] LABS: BASOPHILS % (AUTO) 1 % (0-1); EOSINOPHILS % (AUTO) 2 % (1-7); LYMPHOCYTES % (AUTO) 17 % (22-44); MEAN CORPUSCULAR HEMOGLOBIN 29.8 pg (27.5-34.5); MEAN CORPUSCULAR HGB CONC 33.9 g/dL (33.2-36.2); MEAN PLATELET VOLUME 9.5 fL (7.4-10.4); MONOCYTES % (AUTO) 8 % (2-9); NEUTROPHILS % (AUTO) 73 % (42-75); PLATELET COUNT 130 x10^3/uL (130-400); RED BLOOD COUNT 4.72 x10^6/uL (4.38-5.82); RED CELL DISTRIBUTION WIDTH 15.2 % (9.4-14.8)
[2020-09-15 11:21] LABS: MD NO
--- NOTE | 2020-09-15 11:26 | NUR ---
pt requesting food. pt advised of NPO status. pt has no new c/o at this time. denies CP or SOB. pt able to stand at bedside to urinate. no apparent distress pt updated on POC
--- NOTE | 2020-09-15 11:49 | NUR ---
chart up for MD recheck
--- NOTE | 2020-09-15 11:55 | NUR ---
pt has gotten up a few times to urinate with urinal at the side of the bed. each time, the patient has started yelling that his cords and monitring equipment are in the way. have attempted to calm pt and position monitoring equipment each time. pt is again yelling and agitated. have attempted to calm pt and update pt on POC, pt states "I know what they are gonna do, you are just going to send me home!" pt has urinated on the floor and continues to yell at this RN and staff at bedside. pt states that he is not getting help. attempting to re-orient patient to all steps of care today. pt states he wants food. reminded patient that he is still NPO at this time. pt has been given warm blankets and had re-positioning multiple times for comfort. pt staes that he wants to leave. have attempted to convince patient to wait for his test results as pt chart is up for recheck. pt states that he "doesn't care" and that he knows we "are just going o send him home and not do anything for him" Dr Linn notified
[2020-09-15 12:12] VITALS: BP 152/85
== END 2020-09-15 12:16 | disposition left against medical advice (07) ==
LOC: ED 09:10
DX: R55 Syncope and collapse (principal); I11.0 Hypertensive heart disease with heart failure; I50.9 Heart failure, unspecified; I48.91 Unspecified atrial fibrillation; I25.2 Old myocardial infarction; I48.92 Unspecified atrial flutter; Z86.73 Personal history of transient ischemic attack (TIA), and cerebral infarction without residual deficits; Z87.891 Personal history of nicotine dependence
CPT/HCPCS: 36415; 70450; 80048; 82040; 84484; 85025; 93005; 99285

== ENCOUNTER 2020-09-16 11:45 | Emergency (ER) | payer OTHER ==
[~2020-09-16] VITALS: Ht 180.3 cm; Wt 100.0 kg
--- NOTE | 2020-09-16 12:00 | NUR ---
biba after syncope episode. pt states he had LOC and hit head. pt on eliquis and has hx of cva. pt reports new weakness on r. side and headache. pt able to transfer self to bed with steady gait. postioned to comfort. attached to monitors. vss. nadabdiaziz. dr. gamez to bedside for evaluation.
[2020-09-16 12:24] VITALS: BP 136/75
--- NOTE | 2020-09-16 12:55 | NUR ---
PT DRESSED IN CLOTHING COMING INTO OTHER PTS ROOM TO FIND THIS RN AND ASK TO HAVE IV REMOVED. PT STATES HE IS LEAVING BECAUSE "YOU PEOPLE AREN'T GOING TO DO ANYTHING FOR ME" PIV REMOVED BY THIS RN WITH TIP INTACT. PT REFUSED TO SIGN AMA FORM. DR. BETH NOTIFED. PT LEFT WITH STEADY GAIT AND WITH ALL BELONGINGS.
== END 2020-09-16 13:02 | disposition left against medical advice (07) ==
LOC: ED 12:10
DX: S09.90XA Unspecified injury of head, initial encounter (principal); R42 Dizziness and giddiness; R55 Syncope and collapse; I25.2 Old myocardial infarction; I11.0 Hypertensive heart disease with heart failure; I50.9 Heart failure, unspecified; I48.91 Unspecified atrial fibrillation; Z86.73 Personal history of transient ischemic attack (TIA), and cerebral infarction without residual deficits; W18.30XA Fall on same level, unspecified, initial encounter; Y93.89 Activity, other specified; Y92.009 Unspecified place in unspecified non-institutional (private) residence as the place of occurrence of the external cause; Y99.8 Other external cause status
CPT/HCPCS: 70450; 99284

== ENCOUNTER 2020-09-17 10:52 | Emergency (ER) | payer OTHER ==
[~2020-09-17] VITALS: Ht 180.3 cm; Wt 95.0 kg
[2020-09-17 11:01] VITALS: BP 145/78
--- NOTE | 2020-09-17 11:01 | NUR ---
PT BIBA FROM HOME FOR C/O SYNCOPAL EPISODE & DZY. PT STATES HE LOC FOR UNKNOWN AMOUNT OF TIME, WAS FOUND DOWN ON CARPETED FLOOR BY NEIGHBORS. PT STATES HE HIT HIS HEAD. DENIES PAIN. SKIN INTACT, NO DEFORMITY NOTED. PT CHANGED INTO GOWN, MONITORS IN PLACE. CALL LIGHT WITHIN REACH
--- NOTE | 2020-09-17 11:34 | NUR ---
PT ELOPED AFTER ERMD REVIEWED POC. ERP AWARE
== END 2020-09-17 11:36 | disposition left against medical advice (07) ==
LOC: ED 11:07
DX: R55 Syncope and collapse (principal); R42 Dizziness and giddiness; I11.0 Hypertensive heart disease with heart failure; I50.9 Heart failure, unspecified; I48.91 Unspecified atrial fibrillation; I48.92 Unspecified atrial flutter; I25.2 Old myocardial infarction; Z86.73 Personal history of transient ischemic attack (TIA), and cerebral infarction without residual deficits
CPT/HCPCS: 99283